=== PATIENT | female | born 1935 | race Caucasian/White ===

== ENCOUNTER 2016-08-23 02:27 | Inpatient (IN) ==
[2016-08-23] MEDS ORDERED: DILTIAZEM 100 MG VIAL.ADD IV ONE ×2 (02:37→02:45)
[2016-08-23] MEDS ORDERED: DILTIAZEM 50 MG/10 ML VIAL IV ONE (02:37)
[2016-08-23] MEDS ORDERED: ASPIRIN 325 MG TABLET PO STA (03:21)
[2016-08-23] MEDS ORDERED: MORPHINE 2 MG/1 ML SYRINGE IV STA (03:21)
[2016-08-23] MEDS ORDERED: ONDANSETRON 4 MG/2 ML VIAL IV STA (03:21)
[2016-08-23] MEDS ORDERED: NITROGLYCERIN 2% OINT 1 INCH/GM PACK TOP STA (03:21)
[2016-08-23] MEDS ORDERED: ALUM/MAG/SIMETH/LIDO VISC 1:1 30 ML BOTTLE PO STA (03:21)
--- NOTE | 2016-08-23 03:24 | EKG Report ---
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
[2016-08-23] MEDS ORDERED: ONDANSETRON 4 MG/2 ML VIAL ONE (03:47)
[2016-08-23] MEDS ORDERED: ASPIRIN 325 MG TABLET ONE (03:47)
[2016-08-23] MEDS ORDERED: ALUM/MAG/SIMETH/LIDO VISC 1:1 30 ML BOTTLE PO ONE (03:47)
[2016-08-23] MEDS ORDERED: NITROGLYCERIN 2% OINT 1 INCH/GM PACK TOP ONE (03:47)
[2016-08-23] MEDS ORDERED: MORPHINE 2 MG/1 ML SYRINGE ONE (03:48)
[2016-08-23 04:14] LABS: Basophils # 0.1 10*3/uL (0.0-0.2); Basophils % 0.7 % (0.0-0.8); Eosinophils # 0.7 10*3/uL (0.0-0.87); Hematocrit 35.3 VOL% (35.7-47.0); Hemoglobin 11.8 GM/DL (12.0-16.0); Immature Granulocytes % 0.3 %; Immature Granulocytes Absolute 0.02 #; Lymphocytes # 2.2 10*3/uL (1.4-4.0); Lymphocytes % 29.8 % (21.3-54.2); Mean Corpuscular HGB Conc 33.4 GM/DL (32-36); Mean Corpuscular Hemoglobin 30 PG (27-34); Mean Corpuscular Volume 90.5 FL (87-102); Mean Platelet Volume 11.1 FL (9.6-12.0); Monocytes # 0.8 10*3/uL (0.11-0.8); Monocytes % 10.7 % (1.7-12.7); Neutrophils # 3.7 10*3/uL (1.4-7.4); Neutrophils % 49.5 % (38.7-73.9); Platelet Count 182 T/CUMM (130-400); Red Cell Distribution Width 14.4 % (9.3-17.3); White Blood Count 7.4 T/CUMM (4-12)
[2016-08-23 04:26] LABS: D-Dimer <= 0.5 MG/L FEU; INR 1.1; PT Patient Result 12.1 SECS
[2016-08-23 04:41] LABS: Alanine Aminotransferase 28 U/L (13-56); Albumin 2.9 G/DL (3.4-5.0); Alkaline Phosphatase 196 U/L (45-117); Aspartate Amino Transferase 18 U/L (0-37); Bilirubin,Total < 0.39 MG/DL (0.2-1.0); Blood Urea Nitrogen 25 MG/DL (7-18); Calcium 7.6 MG/DL (8.5-10.1); Glucose 102 MG/DL (74-106); Magnesium 1.8 MG/DL (1.8-2.4); Osmolality,Calculated 286.1 MOS/KG (273-304); Sodium 142 MMOL/L (136-145); Total Protein 6.1 G/DL (6.4-8.3)
--- NOTE | 2016-08-23 04:41 | Emergency Department Note ---
Zack Preston Emily, am scribing for, and in the presence of, Fili Kelsey MD 03: 28. Laure Preston Charles R, MD, personally performed the services described in this documentation, ascribed by Felicita Dixon in my presence, and it is both accurate and complete 441 . Arrival - Arrival Chief Complaint: Chest Pain Stated Complaint: chest pain ED Nursing Triage Note: C/C pain betweeen shoulder blades and down left arm that has been off/on all day 08/22/16. pt took 1 SL NTG, with relief of pain. Pt took 81mg x2 ASA. Mode of Arrival: Stretcher Limitations: No Limitations Source: Patient Time Seen by Provider: 08/23/16 02:31 - History of Present Illness HPI Narrative: Pt is a 81 y/o female who came to ED with c/o severe pain between shoulder blades in waves since yesterday, but now resolved. Pt has hx of Afib, having one stent and on Plavix, but no OK. Pt was experiencing rapid palpitations, dizziness, weakness, and right sided neck pain but denies abdomen pain. Pt's PCP is Dr. Sahara Blankenship. PMHx of chronic SOB due to COPD of former smoker (quit 7 yrs ago), arthritis in lower back, CA. Pt has pet scan appointment on August 26 to check for any "hot spots." Pt took 1 SL NTG, with relief of pain and 81mg x2 ASA. Onset (ago): day(s) Consistency: intermittent, now resolved Severity: moderate Severity scale (1-10): 6 Quality: aching Allergies/Adverse Reactions: Allergies Allergy/AdvReac Type Severity Reaction Status Date / Time No Known Allergies Allergy Unverified 08/23/16 02:42 Review of System - Review of System 12 point system: reviewed and no additional remarkable complaints except as stated - Review of System Constitutional: Present: weakness. Absent: chills, fever Respiratory: Present: respiratory distress (chronic sob). Absent: cough Cardiovascular: Present: palpitations. Absent: syncope Gastrointestinal: Absent: abdominal pain, nausea, vomiting Genitourinary female: Absent: dysuria Musculoskeletal: Present: neck pain (right sided neck), upper back pain ( between shoulder blades but now resolved). Absent: arm pain, leg pain Skin: Absent: rash Neurological: Present: other (dizziness). Absent: headache Medical,Surgical,& Family Hx - Medical History Cardio: History of: Cardiac Dysrhythmia, CAD, Hypertension, Cardiovascular Problems (Stent) Endocrine: History of: Dyslipidemia Respiratory: History of: COPD Hematology: History of: Anemia Other: History of: Cancer (Lung cell carcinoma) - Surgical History Cardiac Surgeries: Sugical HX of: Cardiac Catheterization Abdominal Surgeries: Surgical HX of: Cholecystectomy - Family History Family History: noncontributory - Social History Smoking Status: Never smoker Frequency of Alcohol Use: None Type of Drug Use: None Marital Status: Single Lives With:: Alone Functional capacity: independent ambulation Exam Vital Signs: Vital Signs Temperature 97.6 F 08/23/16 02:34 Pulse Rate 144 H 08/23/16 02:34 Respiratory Rate 16 08/23/16 02:34 Blood Pressure 115/74 08/23/16 02:34 O2 Sat by Pulse Oximetry 98 08/23/16 02:34 - General General appearance: alert, in no apparent distress - Head Head exam: Present: atraumatic, normocephalic - Eye Eye exam: Present: PERRL, EOMI - ENT ENT exam: Present: mucous membranes moist - Neck Neck exam: Present: full ROM. Absent: tenderness - Chest Chest inspection: Present: symmetric chest wall rise. Absent: tenderness - Respiratory Respiratory exam: Present: rhonchi (bilateral). Absent: normal lung sounds bilaterally - Cardiovascular Cardiovascular exam: Present: bradycardia, normal heart sounds - Abdominal Exam Abdominal exam: Present: soft, normal bowel sounds. Absent: tenderness - Extremities Exam Extremities exam: Present: full ROM, pedal edema (+1). Absent: tenderness - Neurological Exam Neurological exam: Present: alert, oriented X3, CN II-XII intact. Absent: motor sensory deficit - Psychiatric Psychiatric exam: Present: normal affect, normal mood - Skin Skin exam: Present: warm, dry Course - Consultations Consultation #1: Dr. Bobby Michael admit patient for Dr. Ainsley Blankenship Time: 04:48 Results - Labs CBC & BMP: 08/23/16 03:56 08/23/16 03:56 Lab Results: I have reviewed the patients labs Labs: Laboratory Tests 08/23/16 03:56 WBC 7.4 RBC 3.90 Hgb 11.8 L Hct 35.3 L Plt Count 182 Critical Care Time Critical Care Time: Yes Total Critical Care Time: 60 Disposition Clinical Impression: Chest pain, COPD (chronic obstructive pulmonary disease), Atrial fibrillation with RVR Case discussed with: patient Disposition: Still a Patient Condition: Guarded Time of Disposition: 04:50
[2016-08-23] MEDS ORDERED: DILTIAZEM INJ 100 MG in SODIUM CHLORIDE 0.9% 100 ML IV SCH (05:00)
[2016-08-23] MEDS ORDERED: ALBUTEROL/IPRATROPIUM 3 ML NEB RESP TX PRN (05:10)
[2016-08-23] MEDS ORDERED: ONDANSETRON 4 MG/2 ML VIAL IV PRN (05:10)
[2016-08-23] MEDS ORDERED: ACETAMINOPHEN 325 MG TABLET PO PRN (05:10)
[2016-08-23] MEDS: SODIUM CHLORIDE 0.9% 1,000 ML IV SCH ×2 (06:10→16:09)
[2016-08-23] MEDS: MORPHINE 2 MG/1 ML SYRINGE IV PRN (06:11)
--- NOTE | 2016-08-23 06:29 | XRay Report ---
XR chest 2V Indication: Chest pain. Comparison: CT chest 07/31/2016. Technique: PA and lateral chest x-ray was performed. Findings: The heart size appears within normal limits. Pulmonary vasculature demonstrates no specific abnormality. Hilar structures demonstrate fairly symmetric appearance. The lungs appear minimally hyperinflated. Right paratracheal density is demonstrated with surrounding suture line. Disease recurrence in region of prior resection is suggested. Mild emphysematous changes are suggested. Bones and soft tissues demonstrate no evidence of acute pathology. Surgical clips are noted at the GE junction and may reflect prior fundoplication. Additional clips right upper quadrant suggest previous cholecystectomy. Impression: 1. Right paratracheal density is present in the setting of multiple sutures. Disease recurrence and previous surgical bed is not excluded. 2. Emphysematous changes. 08/23/2016 6:23 AM PROCEDURE INTERPRETED AT [facility] DEPARTMENT OF RADIOLOGY Final Report Signed by: Dr. Lanre Banuelos
--- NOTE | 2016-08-23 07:47 | EKG Report ---
Stationary ECG Study 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
[2016-08-23 08:48] LABS: Free T4 (Free Thyroxine) 1.11 NG/DL (0.76-1.46); Thyroid Stimulating Hormone 2.49 uIU/ml (0.358-3.74)
[2016-08-23] MEDS ORDERED: ASPIRIN EC 81 MG TABLET PO SCH (09:00)
[2016-08-23] MEDS ORDERED: DOCUSATE SODIUM 100 MG CAPSULE PO SCH (09:00)
[2016-08-23] MEDS ORDERED: PANTOPRAZOLE 40 MG VIAL IV SCH (09:00)
[2016-08-23] MEDS ORDERED: ENOXAPARIN 40 MG/0.4 ML SYRINGE SUBCUT SCH (09:00)
--- NOTE | 2016-08-23 09:16 | Cardiology Consult Note ---
Assessment and Plan (1) Chest pain Status: Acute Assessment and plan: 81-year-old female, presenting with chest pain. CAD, status post RCA PCI 2007, COPD, lung cancer, paroxysmal A. fib, hypothyroidism, hypertension, hyperlipidemia. So far, no evidence of ACS. 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 -Hypotension. Stop Cardizem drip, she is back in sinus rhythm/ranjit. Continue IVF. -Echo. At the bedside, ejection fraction was preserved, there was no pericardial effusion or right ventricle dilatation. Suspicion for hemodynamically significant PE is low. -CAD, A. fib. CHADSVASC 4. No bleeding issues. Stop aspirin, continue Plavix. Start Eliquis 5 mg twice daily. Continue PPI. -cont statin -Continue metoprolol for rate/rhythm control. If the A. fib recurs, sotalol is an option. I would avoid amiodarone, due to her lung cancer, s/p surgery -Check TFTs -Keep on telemetry, recheck cardiac enzymes, EKG -She will need ischemic evaluation. Given her comorbidities, a pharmacological stress test is an option. If she remains stable, this may be pursued as an outpatient. Current Visit: Yes (2) COPD (chronic obstructive pulmonary disease) Status: Acute Current Visit: Yes (3) Atrial fibrillation with RVR Status: Acute Current Visit: Yes History of Present Illness - Data of Consult Patient: known to practice within the last 3 years Consult date: 08/23/16 Requesting Physician: Ainsley Blankenship - Consult Narrative Reason for consult: CP History of present illness: Ms. He is a 81 year old female, followed by Dr. Burton. History of right lung cancer, status post surgery, with persistent disease in the right paratracheal region, with T3/T4 involvement. Also, history of CAD, status post RCA PCI in 2007. Hypertension hyperlipidemia. History of paroxysmal atrial fibrillation. Yesterday, while at rest, she developed sudden onset, sharp right-sided chest pain and back pain. Which was waxing and waning. Was not affected by activity. She came for evaluation to the emergency room. She also had palpitations. Initially, she was in atrial fibrillation, RVR, was started on Cardizem drip, then she converted back to sinus rhythm and became hypotensive. This was not symptomatic. Troponins were unremarkable, there were no significant repolarization changes on the EKG. The chest pain improved. Prior to the onset of symptoms, she felt fine, her COPD stable. She takes Synthroid for hypothyroidism. EKG showed persistent right paratracheal disease. Recent chest CT confirmed local mass, with spine involvement. CC: Ainsley Blankenship, DO - Home Medications and Allergies Home Medications: Home Medications Medication Instructions Recorded Confirmed Type Albuterol Sulfate [Ventolin HFA] 2 puff INH Q6H PRN 08/23/16 08/23/16 History Aspirin [Ecotrin] 81 mg PO DAILY 08/23/16 08/23/16 History Atorvastatin [Lipitor] 10 mg PO DAILY 08/23/16 08/23/16 History Clopidogrel [Plavix] 75 mg PO DAILY 08/23/16 08/23/16 History Docusate Sodium [Colace] 200 mg PO QPM 08/23/16 08/23/16 History Estradiol Tab [Estrace Tab] 1 mg PO DAILY 08/23/16 08/23/16 History Famotidine 20 mg PO BEDTIME 08/23/16 08/23/16 History Ferrous Sulfate 325 mg PO DAILY 08/23/16 08/23/16 History Folic Acid Tab 1 mg PO DAILY 08/23/16 08/23/16 History HYDROcodone/ACETAMIN 10-325 [[place] 1 tablet PO Q6H PRN 08/23/16 08/23/16 History 10-325] Levothyroxine Tab [Synthroid Tab] 50 mcg PO DAILY@0700 08/23/16 08/23/16 History Metoprolol Succinate Xl [Toprol Xl] 50 mg PO DAILY 08/23/16 08/23/16 History Nitroglycerin [Nitroglycerin SL 0.4 mg SL Q5M PRN 08/23/16 08/23/16 History Tab] Norgestimate-Ethinyl Estradiol 1 each PO DAILY 08/23/16 08/23/16 History [Ortho Tri-Cyclen Lo Tablet] Ondansetron Tab [Zofran Tab] 4 mg PO Q8HR PRN 08/23/16 08/23/16 History Pregabalin [Lyrica] 150 mg PO TID 08/23/16 08/23/16 History Promethazine Tab [Phenergan Tab] 25 mg PO Q6H PRN 08/23/16 08/23/16 History cephALEXin [Keflex] 500 mg PO Q8HR 08/23/16 08/23/16 History clonazePAM [Klonopin] 1 mg PO BEDTIME PRN 08/23/16 08/23/16 History fentaNYL 25 MCG/HR PATCH 1 patch TRANSDERM Q3DAY 08/23/16 08/23/16 History [Duragesic 25 Patch] hydroCHLOROthiazide 25 mg PO DAILY 08/23/16 08/23/16 History [Hydrochlorothiazide] Allergies/Adverse Reactions: Allergies Allergy/AdvReac Type Severity Reaction Status Date / Time No Known Allergies Allergy Unverified 08/23/16 02:42 12 point system: reviewed and no additional remarkable complaints except as stated Medical,Surgical,& Family Hx - Medical History Cardio: History of: Cardiac Dysrhythmia, CAD, Hypertension, Cardiovascular Problems (Stent) HEENT: History of: HEENT Problems (cataracts) Endocrine: History of: Dyslipidemia, Endocrine Problems (hypothyroidism) Respiratory: History of: COPD, Lung Cancer (in remission x 7 years) Gastrointestinal: History of: GERD Musculoskeletal: History of: Back/Neck Problems, Herniated Disk, Osteoporosis Hematology: History of: Anemia Other: History of: Cancer (Lung cell carcinoma) - Surgical History Cardiac Surgeries: Sugical HX of: Cardiac Catheterization Thoracic Surgeries: Surgical HX of;: Lobectomy (RULobectomy) HEENT Surgeries: Surgical HX of: Eye Surgery (cataract surgery) Abdominal Surgeries: Surgical HX of: Appendectomy, Cholecystectomy Reproductive Surgeries: Surgical HX of;: Hysterectomy Orthopedic Surgeries: Surgical HX of;: Spinal Surgery - Family History Family History: Reports;: Family Heart Disease, Family Hypertension - Social History Smoking Status: Never smoker Frequency of Alcohol Use: None Type of Drug Use: None Physical Examination Vital Signs Temp Pulse Resp BP Pulse Ox 97.6 F 138 H 16 115/74 98 08/23/16 02:34 08/23/16 02:34 08/23/16 02:34 08/23/16 02:34 08/23/16 02:34 General: Present: Appears Well, No Apparent Distress HEENT: Present: Normocephaly, Mucus Membranes Moist Neck: Present: No JVD/HJR Cardiac: Present: Regular Rate, Regular Rhythm, S1/S2, Systolic Murmur Lungs: Present: Decreased Breath Sounds. Absent: Rales - Left, Rales - Right Neuro: Present: Grossly Intact Abdomen: Present: Soft, Active Bowel Sounds Skin: Present: Clear Musculoskeletal: Present: No Pain Extremities: Present: No Clubbing, No Cyanosis, No Edema Result/EKG - Labs CBC & BMP: 08/23/16 03:56 08/23/16 03:56 Lab Results: I have reviewed the past 24 hour labs Labs: Laboratory Results - last 24 hr 08/23/16 08/23/16 08/23/16 03:56 03:56 03:56 WBC RBC Hgb Hct MCV MCH MCHC RDW Plt Count MPV Neut % (Auto) Lymph % (Auto) [place] % (Auto) Eos % (Auto) Baso % (Auto) Neut # (Auto) Lymph # (Auto) [place] # (Auto) Eos # (Auto) Baso # (Auto) Immature Gran % Nucleated RBC % Immature Gran # Nucleated RBCs # INR 1.1 PT Patient/Control Mix 12.1 D-Dimer, Quantitative <= 0.5 Sodium 142 Potassium 4.0 Chloride 110 H Carbon Dioxide 23 Anion Gap 13.0 BUN 25 H Creatinine 1.00 GFR Calculation 56 BUN/Creatinine Ratio 25.00 H Glucose 102 Calculated Osmolality 286.1 Calcium 7.6 L Magnesium 1.8 Total Bilirubin < 0.39 AST 18 ALT 28 Alkaline Phosphatase 196 H Troponin I B-Natriuretic Peptide 165 H Total Protein 6.1 L Albumin 2.9 L Globulin 3.2 Albumin/Globulin Ratio 0.9 L Lipase 171.0 Free T4 TSH 3rd Generation 08/23/16 08/23/16 08/23/16 03:56 03:56 07:10 WBC 7.4 RBC 3.90 Hgb 11.8 L Hct 35.3 L MCV 90.5 MCH 30 MCHC 33.4 RDW 14.4 Plt Count 182 MPV 11.1 Neut % (Auto) 49.5 Lymph % (Auto) 29.8 [place] % (Auto) 10.7 Eos % (Auto) 9.0 Baso % (Auto) 0.7 Neut # (Auto) 3.7 Lymph # (Auto) 2.2 [place] # (Auto) 0.8 Eos # (Auto) 0.7 Baso # (Auto) 0.1 Immature Gran % 0.3 Nucleated RBC % 0.0 Immature Gran # 0.02 Nucleated RBCs # 0.00 INR PT Patient/Control Mix D-Dimer, Quantitative Sodium Potassium Chloride Carbon Dioxide Anion Gap BUN Creatinine GFR Calculation BUN/Creatinine Ratio Glucose Calculated Osmolality Calcium Magnesium Total Bilirubin AST ALT Alkaline Phosphatase Troponin I < 0.015 0.016 B-Natriuretic Peptide Total Protein Albumin Globulin Albumin/Globulin Ratio Lipase Free T4 TSH 3rd Generation 08/23/16 07:10 WBC RBC Hgb Hct MCV MCH MCHC RDW Plt Count MPV Neut % (Auto) Lymph % (Auto) [place] % (Auto) Eos % (Auto) Baso % (Auto) Neut # (Auto) Lymph # (Auto) [place] # (Auto) Eos # (Auto) Baso # (Auto) Immature Gran % Nucleated RBC % Immature Gran # Nucleated RBCs # INR PT Patient/Control Mix D-Dimer, Quantitative Sodium Potassium Chloride Carbon Dioxide Anion Gap BUN Creatinine GFR Calculation BUN/Creatinine Ratio Glucose Calculated Osmolality Calcium Magnesium Total Bilirubin AST ALT Alkaline Phosphatase Troponin I B-Natriuretic Peptide Total Protein Albumin Globulin Albumin/Globulin Ratio Lipase Free T4 1.11 TSH 3rd Generation 2.490 - EKG EKG results: interpreted by me
--- NOTE | 2016-08-23 09:25 | EKG Report ---
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
[2016-08-23] MEDS: APIXABAN 5 MG TABLET PO SCH ×2 (09:32→20:12)
[2016-08-23] MEDS: CLOPIDOGREL 75 MG TABLET PO SCH (09:32)
--- NOTE | 2016-08-23 13:51 | Internal Med History&Physical ---
Assessment and Plan (1) Acid indigestion Status: Acute Current Visit: Yes (2) Drug-induced hypotension Status: Acute Current Visit: Yes (3) CAD (coronary artery disease) Status: Chronic Current Visit: Yes Qualifiers: Coronary Disease-Associated Artery/Lesion type: [place] artery [place] vs. transplanted heart: [place] heart Associated angina: with stable angina Qualified Code(s): I25.118 - Atherosclerotic heart disease of [place] coronary artery with other forms of angina pectoris (4) History of lung cancer Problem details: right paratracheal density on chest x-ray; PET scan ordered for Friday Status: Chronic Current Visit: No (5) Atrial fibrillation with RVR Status: Acute Current Visit: Yes (6) COPD (chronic obstructive pulmonary disease) Status: Chronic Current Visit: Yes (7) Chest pain Status: Acute Current Visit: Yes (8) Paroxysmal a-fib Status: Chronic Current Visit: Yes History of Present Illness Chief complaint: acute SOB and upper back pain History of present illness: Ms. He is a 81 year old female with history of paroxysmal atrial fibrillation, allergic rhinitis, hypothyroid, HTN, OA, COPD, lung cancer non small cell in remission several years, CAD/stenting per Dr. Burton, post menopausal symptoms and on estrogen therapy, presented to ER with acute SOB, chest tightness and acid indigestion, and found to be in atrial fibrillation. She was started on Cardizem and given nitro which helped. She converted to sinus rhythm quickly, but became hypotensive drug induced. She was in ICU. She stablized quickly and was transferred to [facility]. ECHO shows LVEF 55% with diastolic dysfunction and mild pulmonary hypertension. Her recently has been placed in group home for advanced dementia. She has been having acid indigestion episodically, similar to before when she had coronary stents placed. She will see Dr. Burton outpatient for further workup. Cardiac enzymes in ER are negative. Also, she quit smoking recently. However, she has a right paratracheal density noted on chest x-ray and PET scan is scheduled for early Friday morning. She is followed by Dr. Raj Blankenship. She is followed by Dr. Gayle for pain management. Home Medications Medication Instructions Recorded Confirmed Type Albuterol Sulfate [Ventolin HFA] 2 puff INH Q6H PRN 08/23/16 08/23/16 History Aspirin [Ecotrin] 81 mg PO DAILY 08/23/16 08/23/16 History Atorvastatin [Lipitor] 10 mg PO DAILY 08/23/16 08/23/16 History Clopidogrel [Plavix] 75 mg PO DAILY 08/23/16 08/23/16 History Docusate Sodium [Colace] 200 mg PO QPM 08/23/16 08/23/16 History Estradiol Tab [Estrace Tab] 1 mg PO DAILY 08/23/16 08/23/16 History Famotidine 20 mg PO BEDTIME 08/23/16 08/23/16 History Ferrous Sulfate 325 mg PO DAILY 08/23/16 08/23/16 History Folic Acid Tab 1 mg PO DAILY 08/23/16 08/23/16 History HYDROcodone/ACETAMIN 10-325 [[place] 1 tablet PO Q6H PRN 08/23/16 08/23/16 History 10-325] Levothyroxine Tab [Synthroid Tab] 50 mcg PO DAILY@0700 08/23/16 08/23/16 History Metoprolol Succinate Xl [Toprol Xl] 50 mg PO DAILY 08/23/16 08/23/16 History Nitroglycerin [Nitroglycerin SL 0.4 mg SL Q5M PRN 08/23/16 08/23/16 History Tab] Norgestimate-Ethinyl Estradiol 1 each PO DAILY 08/23/16 08/23/16 History [Ortho Tri-Cyclen Lo Tablet] Ondansetron Tab [Zofran Tab] 4 mg PO Q8HR PRN 08/23/16 08/23/16 History Pregabalin [Lyrica] 150 mg PO TID 08/23/16 08/23/16 History Promethazine Tab [Phenergan Tab] 25 mg PO Q6H PRN 08/23/16 08/23/16 History cephALEXin [Keflex] 500 mg PO Q8HR 08/23/16 08/23/16 History clonazePAM [Klonopin] 1 mg PO BEDTIME PRN 08/23/16 08/23/16 History fentaNYL 25 MCG/HR PATCH 1 patch TRANSDERM Q3DAY 08/23/16 08/23/16 History [Duragesic 25 Patch] hydroCHLOROthiazide 25 mg PO DAILY 08/23/16 08/23/16 History [Hydrochlorothiazide] Allergies Allergy/AdvReac Type Severity Reaction Status Date / Time No Known Allergies Allergy Unverified 08/23/16 02:42 Medical,Surgical,& Family Hx - Medical History Cardio: History of: Cardiac Dysrhythmia, CAD, Hypertension, Cardiovascular Problems (Stent) Psychological: History of: Depression HEENT: History of: HEENT Problems (cataracts) Endocrine: History of: Dyslipidemia, Thyroid Disorder, Endocrine Problems ( hypothyroidism) Respiratory: History of: COPD, Lung Cancer (in remission x 7 years) Gastrointestinal: History of: GERD Musculoskeletal: History of: Back/Neck Problems, Herniated Disk, Osteoporosis Hematology: History of: Anemia Other: History of: Cancer (Lung cell carcinoma) - Surgical History Cardiac Surgeries: Sugical HX of: Cardiac Catheterization Thoracic Surgeries: Surgical HX of;: Lobectomy (RUL lobectomy) HEENT Surgeries: Surgical HX of: Eye Surgery (cataract surgery) Abdominal Surgeries: Surgical HX of: Appendectomy, Cholecystectomy Reproductive Surgeries: Surgical HX of;: Hysterectomy Orthopedic Surgeries: Surgical HX of;: Spinal Surgery - Family History Family History: Reports;: Family Heart Disease, Family Hypertension - Social History Smoking Status: Never smoker Frequency of Alcohol Use: None Type of Drug Use: None Marital Status: Lives With:: Alone ( in group home) Functional capacity: independent ambulation - Constitutional Constitutional: Present: fatigue - Cardiovascular Cardiovascular: Present: dyspnea, palpitations - Gastrointestinal Gastrointestinal: Present: dyspepsia, heartburn - Musculoskeletal Musculoskeletal: Present: arthralgias, back pain - Psychiatric Psychiatric: Present: anxiety Exam - Constitutional Vitals: Period Temp Pulse Resp BP Sys/[place] Pulse Ox Last 24 Hr 97.4 F-97.6 F 56-144 14-26 81-115/32-74 93-98 General appearance: no acute distress - Head Head exam: Present: normocephalic - Eye Eye exam: Present: EOMI - Respiratory Respiratory exam: Present: clear to auscultation bilaterally - Cardiovascular Cardiovascular exam: Present: regular rate and rhythm - GI/Abdominal GI/Abdominal exam: Present: normal bowel sounds, tenderness (low sternal/upper epigastric), soft - Extremities Exam Extremities exam: Absent: edema - Neurological Exam Neurological exam: Present: alert, oriented X3 - Psychiatric Psychiatric exam: Present: normal mood - Skin Skin exam: Present: warm, dry Results - Labs CBC & BMP: 08/23/16 03:56 08/23/16 03:56
[2016-08-23] MEDS ORDERED: ONDANSETRON 4 MG TABLET PO PRN (13:53)
[2016-08-23] MEDS ORDERED: NITROGLYCERIN SL 0.4 MG TABLET SL PRN (13:53)
[2016-08-23] MEDS ORDERED: clonazePAM 0.5 MG TABLET PO PRN (13:53)
[2016-08-23] MEDS: PREGABALIN 75 MG CAPSULE PO SCH ×2 (14:51→20:12)
[2016-08-23] MEDS ORDERED: PREGABALIN 75 MG CAPSULE PO SCH (15:00)
[2016-08-23] MEDS: ALUMINUM/MAGNES/SIMETH MAX STR 30 ML UDCUP PO PRN (17:36)
--- NOTE | 2016-08-23 19:18 | ECHO Report ---
Marcia He Exam Date: 08/23/2016 08:36 Referring Physician: Technologist: Lavonne Guevara Age: 81 Ht (in): 66 Wt (lb): 148 Gender: F Exam Location: [facility] Echo Indications: chest pain, a fib, Lung CA, R/ O effusion BP: 105 / 60 HR: 69 Rhythm: Sinus Technical Quality: IMPRESSIONS Normal left ventricular size, without hypertrophy, with normal systolic function. Estimated left ventricular ejection fraction 55%. Grade 2 diastolic dysfunction. Mild biatrial enlargement. Mild eccentric mitral regurgitation. Mild aortic valve sclerosis, without stenosis or insufficiency. Mild pulmonary hypertension. No pericardial effusion. MEASUREMENTS (Male / Female) Normal Values 2D ECHO LV Diastolic Diameter PLAX 3.7 cm 4.2 - 5.9 / 3.9 - 5.3 cm LV Systolic Diameter PLAX 2.1 cm LV Fractional Shortening PLAX 44.3 % IVS Diastolic Thickness 1.0 cm 0.6 - 1.0 / 0.6 - 0.9 cm LVPW Diastolic Thickness 0.9 cm 0.6 - 1.0 / 0.6 - 0.9 cm RV Internal Dim ED PLAX 2.4 cm Aortic Root Diameter 2.3 cm LA Systolic Diameter LX 3.5 cm 3.0 - 4.0 / 2.7 - 3.8 cm DOPPLER TR Peak Velocity 277.0 cm/s TR Peak Gradient 30.7 mmHg FINDINGS Left Ventricle Normal left ventricular size, without hypertrophy, with normal systolic function. Estimated left ventricular ejection fraction 55%. Grade 2 diastolic dysfunction. Right Ventricle Normal right ventricular size and systolic function. Right Atrium The right atrium is mildly enlarged. Left Atrium The left atrium is mildly enlarged. Mitral Valve Structurally normal mitral valve, with mild eccentric regurgitation. Aortic Valve Mild aortic valve sclerosis, without stenosis or insufficiency. Tricuspid Valve Morphologically normal tricuspid valve. Mild tricuspid valve regurgitation. Tricuspid regurgitation velocities suggest a PAP of 41 mmHg. Pulmonic Valve Pulmonic valve not well visualized. Pericardium No pericardial effusion. Aorta Normal size aortic root and proximal ascending aorta. Amandeep Jones (Electronically Signed) Final Date: 23 August 2016 19:16
[2016-08-23] MEDS: DOCUSATE SODIUM 100 MG CAPSULE PO SCH (20:11)
[2016-08-24] MEDS: SODIUM CHLORIDE 0.9% 1,000 ML IV SCH ×5 (00:06→22:00)
[2016-08-24] MEDS: MORPHINE 2 MG/1 ML SYRINGE IV PRN (00:06)
[2016-08-24] MEDS: ALUMINUM/MAGNES/SIMETH MAX STR 30 ML UDCUP PO PRN (04:00)
[2016-08-24 04:19] LABS: Basophils % 0.7 % (0.0-0.8); Eosinophils # 0.5 10*3/uL (0.0-0.87); Eosinophils % 10.5 % (0.00-10.9); Hematocrit 29.2 VOL% (35.7-47.0); Hemoglobin 9.4 GM/DL (12.0-16.0); Immature Granulocytes % 0.2 %; Immature Granulocytes Absolute 0.01 #; Lymphocytes # 1.5 10*3/uL (1.4-4.0); Lymphocytes % 34.3 % (21.3-54.2); Mean Corpuscular HGB Conc 32.2 GM/DL (32-36); Mean Corpuscular Hemoglobin 29 PG (27-34); Mean Corpuscular Volume 91.3 FL (87-102); Mean Platelet Volume 11.9 FL (9.6-12.0); Monocytes # 0.5 10*3/uL (0.11-0.8); Monocytes % 11.1 % (1.7-12.7); Neutrophils # 1.9 10*3/uL (1.4-7.4); Neutrophils % 43.2 % (38.7-73.9); Platelet Count 147 T/CUMM (130-400); Red Cell Distribution Width 14.7 % (9.3-17.3); White Blood Count 4.4 T/CUMM (4-12)
[2016-08-24 04:48] LABS: Albumin 2.3 G/DL (3.4-5.0); Bilirubin,Total 0.7 MG/DL (0.2-1.0); Calcium 7.4 MG/DL (8.5-10.1); Magnesium 1.7 MG/DL (1.8-2.4); Osmolality,Calculated 291.4 MOS/KG (273-304); Potassium 4.1 MMOL/L (3.5-5.1); Risk Ratio 2.05; VLDL CHOLESTEROL 20.8 MG/DL
--- NOTE | 2016-08-24 07:50 | XRay Report ---
2 view chest. Indication: Shortness of breath. Comparison: Yesterday's exam. The heart is normal in size. Right paraspinous mass effect remains stable. Prominent hilar regions bilaterally. Previous CT of the chest showed prominent central pulmonary vasculature. No consolidation. No pneumothorax. No pleural effusion. Degenerative changes of the spinal column. Bony lesion seen on CT are not appreciated on plain film. Impression: Stable appearance of the chest. Right paraspinous mass effect. PROCEDURE INTERPRETED AT [facility] DEPARTMENT OF RADIOLOGY Final Report Signed by: Dr. Zahraa Aguilera
--- NOTE | 2016-08-24 08:11 | Family Practice Progress Note ---
Family Practice - PN: Subj Interval history: Patient seen this morning. She is in sinus rhythm at present. In no acute distress. She was currently on Plavix but added Eliquis by lean engineer. She did not take this morning's dose (refused it) but I told her to go intake this morning and discuss with cardiology if they want to continue it. Her hemoglobin hematocrit are 9.4 and 29 slightly lower than yesterday. Her chemistry is stable except for slightly low magnesium of 1.7. No complaints otherwise no chest pain shortness of breath or other constitutional Exam (Progress Note) - Constitutional Vitals: Period Temp Pulse Resp BP Sys/[place]ward Pulse Ox Last 24 Hr 96.4 F-98.3 F 53-69 12-22 86-153/32-65 92-99 Exam: Generally stable is alert and answers all questions appropriately HEENT neck is supple trachea midline Cardiovascular rate is sinus rhythm at present, denies any chest pain Lungs clear bilaterally Abdomen soft nondistended nontender Extremities no clubbing cyanosis or edema Results - Labs CBC & BMP: 08/24/16 03:05 08/24/16 03:05 Assessment and Plan (1) Atrial fibrillation with RVR Status: Acute Assessment and plan: 08/24/2016: At this time she is in sinus rhythm and will let her discuss with cardiology concerning the anticoagulants Current Visit: Yes
[2016-08-24] MEDS ORDERED: MAGNESIUM SULF RIDER 4 GM in PREMIX 1 EACH IV PRN (08:30)
[2016-08-24] MEDS ORDERED: MAGNESIUM SULF RIDER 2 GM in PREMIX 1 EACH IV PRN (08:30)
[2016-08-24] MEDS: LEVOTHYROXINE 50 MCG TABLET PO SCH (09:32)
[2016-08-24] MEDS: FERROUS SULFATE 325 MG TABLET PO SCH (09:32)
[2016-08-24] MEDS: PANTOPRAZOLE 40 MG TABLET PO SCH (09:32)
[2016-08-24] MEDS: CLOPIDOGREL 75 MG TABLET PO SCH (09:32)
[2016-08-24] MEDS: APIXABAN 5 MG TABLET PO SCH ×2 (09:32→20:21)
[2016-08-24] MEDS: ESTRADIOL 1 MG TABLET PO SCH (09:32)
[2016-08-24] MEDS: ATORVASTATIN 10 MG TABLET PO SCH (09:33)
[2016-08-24] MEDS: PREGABALIN 75 MG CAPSULE PO SCH ×3 (09:33→20:21)
--- NOTE | 2016-08-24 10:17 | Cardiology Progress Note ---
Assessment and Plan (1) Chest pain Status: Acute Assessment and plan: 81-year-old female, presenting with chest pain. CAD, status post RCA PCI 2007, COPD, lung cancer, paroxysmal A. fib, hypothyroidism, hypertension, hyperlipidemia. So far, no evidence of ACS. 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 PET scan is planned for restaging on Friday. -Hypotension. resolved after stopping cardizem drip. -CAD, A. fib. CHADSVASC 4. No bleeding issues. Stopped aspirin, continue Plavix. Started Eliquis 5 mg twice daily. Patient agrees to take Eliquis. Continue PPI. -If anemia worsens without reversible etiology, may need to just continue aspirin and Plavix -cont statin -Continue metoprolol for rate/rhythm control. If the A. fib recurs, sotalol is an option. I would avoid amiodarone, due to her lung cancer, s/p surgery -TFTs normal -She will need ischemic evaluation. Given her comorbidities, a pharmacological stress test is an option. If she remains stable, this may be pursued as an outpatient. Also, I would await restaging results, PET scan Current Visit: Yes (2) COPD (chronic obstructive pulmonary disease) Status: Chronic Current Visit: Yes (3) Atrial fibrillation with RVR Status: Acute Current Visit: Yes Cardiology - PN: Subj Interval history: She converted back to sinus rhythm. Still feeling weak, poor appetite. No chest pain. Exam (Progress Note) - Constitutional Vitals: Period Temp Pulse Resp BP Sys/Hayward Pulse Ox Last 24 Hr 96.4 F-98.3 F 53-73 12-19 87-181/40-77 92-99 General appearance: normal weight, no acute distress - Head Head exam: Present: normal inspection - Eye Eye exam: Absent: conjunctival injection, scleral icterus Pupils: Absent: dilated - ENT ENT exam: Present: normal external ear exam - Neck Neck exam: Present: normal inspection - Respiratory Respiratory exam: Present: clear to auscultation bilaterally - Cardiovascular Cardiovascular exam: Present: regular rate and rhythm, systolic murmur. Absent : JVD - GI/Abdominal GI/Abdominal exam: Present: normal bowel sounds. Absent: distended - Extremities Exam Extremities exam: Present: normal inspection, normal capillary refill. Absent: edema - Back Exam Back exam: Present: normal inspection - Neurological Exam Neurological exam: Present: alert, oriented X3 - Psychiatric Psychiatric exam: Present: normal affect, normal mood - Skin Skin exam: Present: normal color, warm. Absent: cyanosis Result/EKG - Labs CBC & BMP: 08/24/16 03:05 08/24/16 03:05 Lab Results: I have reviewed the past 24 hour labs Labs: Laboratory Results - last 24 hr 08/23/16 08/24/16 08/24/16 09:41 03:05 03:05 WBC 4.4 D RBC 3.20 L Hgb 9.4 L D Hct 29.2 L MCV 91.3 MCH 29 MCHC 32.2 RDW 14.7 Plt Count 147 MPV 11.9 Neut % (Auto) 43.2 Lymph % (Auto) 34.3 [place] % (Auto) 11.1 Eos % (Auto) 10.5 Baso % (Auto) 0.7 Neut # (Auto) 1.9 Lymph # (Auto) 1.5 [place] # (Auto) 0.5 Eos # (Auto) 0.5 Baso # (Auto) 0.0 Immature Gran % 0.2 Nucleated RBC % 0.0 Immature Gran # 0.01 Nucleated RBCs # 0.00 Sodium 147 H Potassium 4.1 Chloride 115 H Carbon Dioxide 26 Anion Gap 10.1 BUN 14 D Creatinine 0.70 GFR Calculation 84 BUN/Creatinine Ratio 20.00 Glucose 87 Calculated Osmolality 291.4 Calcium 7.4 L Magnesium 1.7 L Total Bilirubin 0.70 AST 72 H ALT 80 H Alkaline Phosphatase 231 H Troponin I 0.018 B-Natriuretic Peptide Total Protein 5.0 L Albumin 2.3 L Globulin 2.7 Albumin/Globulin Ratio 0.8 L Triglycerides 104 Cholesterol 117 LDL Cholesterol 43.0 VLDL Cholesterol 20.8 HDL Cholesterol 57 Heart Disease Risk Ratio 2.05 08/24/16 03:05 WBC RBC Hgb Hct MCV MCH MCHC RDW Plt Count MPV Neut % (Auto) Lymph % (Auto) [place] % (Auto) Eos % (Auto) Baso % (Auto) Neut # (Auto) Lymph # (Auto) [place] # (Auto) Eos # (Auto) Baso # (Auto) Immature Gran % Nucleated RBC % Immature Gran # Nucleated RBCs # Sodium Potassium Chloride Carbon Dioxide Anion Gap BUN Creatinine GFR Calculation BUN/Creatinine Ratio Glucose Calculated Osmolality Calcium Magnesium Total Bilirubin AST ALT Alkaline Phosphatase Troponin I B-Natriuretic Peptide 230 H Total Protein Albumin Globulin Albumin/Globulin Ratio Triglycerides Cholesterol LDL Cholesterol VLDL Cholesterol HDL Cholesterol Heart Disease Risk Ratio - EKG EKG results: interpreted by me
[2016-08-24] MEDS: METOPROLOL SUCCINATE XL 25 MG TABLET PO SCH ×2 (13:04→14:47)
[2016-08-24] MEDS: DOCUSATE SODIUM 100 MG CAPSULE PO SCH (20:21)
[2016-08-25] MEDS: LEVOTHYROXINE 50 MCG TABLET PO SCH (06:00)
[2016-08-25] MEDS: SODIUM CHLORIDE 0.9% 1,000 ML IV SCH (06:00)
[2016-08-25 06:38] LABS: Basophils % 0.4 % (0.0-0.8); Eosinophils # 0.6 10*3/uL (0.0-0.87); Eosinophils % 12.4 % (0.00-10.9); Hematocrit 28.6 VOL% (35.7-47.0); Hemoglobin 9.3 GM/DL (12.0-16.0); Immature Granulocytes % 0.4 %; Immature Granulocytes Absolute 0.02 #; Lymphocytes # 1.5 10*3/uL (1.4-4.0); Lymphocytes % 33.2 % (21.3-54.2); Mean Corpuscular HGB Conc 32.5 GM/DL (32-36); Mean Corpuscular Hemoglobin 30 PG (27-34); Mean Corpuscular Volume 91.1 FL (87-102); Mean Platelet Volume 11.8 FL (9.6-12.0); Monocytes # 0.6 10*3/uL (0.11-0.8); Neutrophils # 1.9 10*3/uL (1.4-7.4); Neutrophils % 41.6 % (38.7-73.9); Platelet Count 153 T/CUMM (130-400); Red Blood Count 3.14 MC/CUMM (3.8-5.5); Red Cell Distribution Width 14.9 % (9.3-17.3); White Blood Count 4.6 T/CUMM (4-12)
[2016-08-25 07:06] LABS: Calcium 7.6 MG/DL (8.5-10.1); Magnesium 2.1 MG/DL (1.8-2.4); Osmolality,Calculated 289.4 MOS/KG (273-304); Potassium 4.2 MMOL/L (3.5-5.1)
[2016-08-25 07:37] LABS: Eosinophils 7 % (0-10); Hypochromasia Slight; Lymphocytes 26 % (20-55); Platelet Estimate Adequate; Polychromasia Slight; Segmented Neutrophils 62 % (50-85); Total Cells Counted 100
--- NOTE | 2016-08-25 08:08 | Discharge Summary ---
Hospital Course - Hospital Course Hospital Course: 81-year-old female came in through the emergency room in atrial fib. She does have a history of paroxysmal atrial fib. She had acute shortness of breath and chest tightness. She was placed on Cardizem drip and given nitroglycerin at that time. She did convert fairly quickly to sinus rhythm. It was admitted an echocardiogram was done which showed an ejection fraction of 55% but with diastolic dysfunction and mild pulmonary hypertension. In the hospital was seen by cardiology and started on Eliquis in addition to her Plavix. In addition to the above he does have a history of hypothyroidism, hypertension , COPD, and lung disease/cancer nonsmall cell carcinoma in remission. Also has had coronary artery disease and stenting in the past. At this time she is stable and feels quite well. She is going to be scheduled for an outpatient PET scan to be done tomorrow. She will also follow-up with cardiology for ischemic studies in the very near future. We will get her appointments with her exceptional children teacher as well as oncologist. Diagnosis - Discharge Diagnosis (1) Atrial fibrillation with RVR Status: Acute Discharge Plan - Discharge Data Disposition: Disch To Home/Self Care Condition at Discharge: Stable Discharge Diet: heart healthy Activity: increase activity as tolerated Hygiene: no restrictions Weight Bearing at Discharge: weight bear as tolerated Driving: not until seen by doctor Contact your physician if you experience:: Shortness of breath, pain uncontrolled by pain medications - Discharge Medications New Apixaban [Eliquis] 5 mg PO BID #60 tablet Clopidogrel [Plavix] 75 mg PO DAILY #0 tablet HYDROcodone/ACETAMIN 5-325 [[place] 5-325] 1 tablet PO Q6H PRN tablet PRN Reason: Pain Moderate (4-7) Metoprolol Succinate Xl [Toprol Xl] 25 mg PO DAILY #30 tablet Continue Ondansetron Tab [Zofran Tab] 4 mg PO Q8HR PRN PRN Reason: Nausea/Vomiting Nitroglycerin [Nitroglycerin SL Tab] 0.4 mg SL Q5M PRN PRN Reason: Chest Pain HYDROcodone/ACETAMIN 10-325 [[place] 10-325] 1 tablet PO Q6H PRN PRN Reason: Pain Estradiol Tab [Estrace Tab] 1 mg PO DAILY Albuterol Sulfate [Ventolin HFA] 2 puff INH Q6H PRN PRN Reason: Shortness Of Breath/Wheezing Levothyroxine Tab [Synthroid Tab] 50 mcg PO DAILY@0700 Folic Acid Tab 1 mg PO DAILY Clopidogrel [Plavix] 75 mg PO DAILY Atorvastatin [Lipitor] 10 mg PO DAILY clonazePAM [Klonopin] 1 mg PO BEDTIME PRN PRN Reason: Anxiety Norgestimate-Ethinyl Estradiol [Ortho Tri-Cyclen Lo Tablet] 1 each PO DAILY Ferrous Sulfate 325 mg PO DAILY Famotidine 20 mg PO BEDTIME Docusate Sodium [Colace] 200 mg PO QPM Promethazine Tab [Phenergan Tab] 25 mg PO Q6H PRN PRN Reason: Nausea/Vomiting fentaNYL 25 MCG/HR PATCH [Duragesic 25 Patch] 1 patch TRANSDERM Q3DAY Pregabalin [Lyrica] 150 mg PO TID Discontinued Metoprolol Succinate Xl [Toprol Xl] 50 mg PO DAILY hydroCHLOROthiazide [Hydrochlorothiazide] 25 mg PO DAILY Aspirin [Ecotrin] 81 mg PO DAILY cephALEXin [Keflex] 500 mg PO Q8HR - Follow Up or Referral Follow Up: Ainsley Blankenship DO [Primary Care Provider] - 2 Weeks Essie Burton DO [Physician] - 2 Weeks - Forms/Instructions Exam - Constitutional Vitals: Period Temp Pulse Resp BP Sys/Hayward Pulse Ox Last 24 Hr 97.1 F-99 F 67-78 18-18 95-138/46-63 92-97 Discharge Results Procedures and tests throughout hospitalization: Pending Orders 08/26/16 04:00 BMP w/ Mg [Basic Metabolic Panel w/Mg] IN AM CBC [Comp Blood Count Auto Diff] IN AM Labs on day of discharge: Labs from last 24 hours 08/25/16 08/25/16 05:38 05:38 WBC 4.6 RBC 3.14 L Hgb 9.3 L Hct 28.6 L MCV 91.1 MCH 30 MCHC 32.5 RDW 14.9 Plt Count 153 MPV 11.8 Neut % (Auto) 41.6 Lymph % (Auto) 33.2 [place] % (Auto) 12.0 Eos % (Auto) 12.4 H Baso % (Auto) 0.4 Neut # (Auto) 1.9 Lymph # (Auto) 1.5 [place] # (Auto) 0.6 Eos # (Auto) 0.6 Baso # (Auto) 0.0 Total Counted 100 Immature Gran % 0.4 Nucleated RBC % 0.0 Immature Gran # 0.02 Segmented Neutrophils 62 Lymphocytes 26 Monocytes 5 Eosinophils 7 Nucleated RBCs # 0.00 Platelet Estimate Adequate Polychromasia Slight Hypochromasia Slight Sodium 147 H Potassium 4.2 Chloride 116 H Carbon Dioxide 24 Anion Gap 11.2 BUN 9 Creatinine 0.70 GFR Calculation 84 BUN/Creatinine Ratio 12.00 Glucose 85 Calculated Osmolality 289.4 Calcium 7.6 L Magnesium 2.1 DS: Provider Date of admission: 08/23/16 04:50 Primary care physician: Ainsley Blankenship DO Attending physician on admission: Ainsley Blankenship DO Consults: 08/23/16 05:10 Consult to Case Mgmt/Social Srvs [CONS] Routine Reason for Case Mgmt/Social Srvs: Discharge Planning Consult to Physician [CONS] Routine Comment: A. fib with RVR, chest pain Consulting Provider: Jerson Shepard Consulting Provider Notified: Yes When should Consulting Provider be notified: In am Consult to Specialist Group: Cardiology Person Notified: opal Date Notified: 08/23/16 Time Notified: 07:30 08/23/16 13:51 Consult to Dietitian [CONS] Routine Reason for Dietitian: Diet Recommendations Consult Comment: protein requirements Discharging clinician: Lon Mg DO
[2016-08-25] MEDS ORDERED: fentaNYL 25 MCG/HR PATCH TRANSDERM SCH (09:00)
[2016-08-25] MEDS: CLOPIDOGREL 75 MG TABLET PO SCH (09:12)
[2016-08-25] MEDS: FERROUS SULFATE 325 MG TABLET PO SCH (09:12)
[2016-08-25] MEDS: ATORVASTATIN 10 MG TABLET PO SCH (09:12)
[2016-08-25] MEDS: PANTOPRAZOLE 40 MG TABLET PO SCH (09:12)
[2016-08-25] MEDS: PREGABALIN 75 MG CAPSULE PO SCH (09:12)
[2016-08-25] MEDS: APIXABAN 5 MG TABLET PO SCH (09:12)
[2016-08-25] MEDS: ESTRADIOL 1 MG TABLET PO SCH (09:12)
[2016-08-25] MEDS: METOPROLOL SUCCINATE XL 25 MG TABLET PO SCH ×2 (09:13→09:29)
--- NOTE | 2016-08-25 09:13 | Cardiology Progress Note ---
Assessment and Plan (1) Chest pain Status: Acute Assessment and plan: 81-year-old female, presenting with chest pain. CAD, status post RCA PCI 2007, COPD, lung cancer, paroxysmal A. fib, hypothyroidism, hypertension, hyperlipidemia. So far, no evidence of ACS. 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 PET scan is planned for restaging on Friday. -Hypotension. resolved after stopping cardizem drip. -CAD, A. fib. CHADSVASC 4. No bleeding issues. Stopped aspirin, continue Plavix. Started Eliquis 5 mg twice daily. Anemia, with hematocrit now around 28. No sign of active bleeding. Will need close follow-up. Continue PPI. If anemia worsens without reversible etiology, may need to just continue aspirin and Plavix -cont statin -Continue metoprolol for rate/rhythm control. If the A. fib recurs, sotalol is an option. I would avoid amiodarone, due to her lung cancer, s/p surgery -TFTs normal -She will need ischemic evaluation. Given her comorbidities, a pharmacological stress test is an option. Follow up with Dr. Burton. Current Visit: Yes (2) COPD (chronic obstructive pulmonary disease) Status: Chronic Current Visit: Yes (3) Atrial fibrillation with RVR Status: Acute Current Visit: Yes Cardiology - PN: Subj Interval history: She still had some intermittent right sided chest pain. Blood pressure, heart rate remained well controlled, SR. Hematocrit around 28. Exam (Progress Note) - Constitutional Vitals: Period Temp Pulse Resp BP Sys/Hayward Pulse Ox Last 24 Hr 97.1 F-99 F 67-78 18-18 95-138/46-63 92-97 General appearance: normal weight, no acute distress - Head Head exam: Present: normal inspection, normocephalic - Eye Eye exam: Absent: conjunctival injection, scleral icterus Pupils: Absent: dilated - ENT ENT exam: Present: normal external ear exam - Neck Neck exam: Present: normal inspection - Respiratory Respiratory exam: Present: clear to auscultation bilaterally. Absent: decreased breath sounds, wheezes - Cardiovascular Cardiovascular exam: Present: irregular rhythm, systolic murmur. Absent: JVD - GI/Abdominal GI/Abdominal exam: Present: normal bowel sounds. Absent: distended - Extremities Exam Extremities exam: Present: normal inspection, normal capillary refill. Absent: edema - Back Exam Back exam: Present: normal inspection - Neurological Exam Neurological exam: Present: alert, oriented X3 - Psychiatric Psychiatric exam: Present: normal affect, normal mood - Skin Skin exam: Present: normal color, warm. Absent: cyanosis, diaphoretic Result/EKG - Labs CBC & BMP: 08/25/16 05:38 08/25/16 05:38 Lab Results: I have reviewed the past 24 hour labs Labs: Laboratory Results - last 24 hr 08/25/16 08/25/16 05:38 05:38 WBC 4.6 RBC 3.14 L Hgb 9.3 L Hct 28.6 L MCV 91.1 MCH 30 MCHC 32.5 RDW 14.9 Plt Count 153 MPV 11.8 Neut % (Auto) 41.6 Lymph % (Auto) 33.2 [place] % (Auto) 12.0 Eos % (Auto) 12.4 H Baso % (Auto) 0.4 Neut # (Auto) 1.9 Lymph # (Auto) 1.5 [place] # (Auto) 0.6 Eos # (Auto) 0.6 Baso # (Auto) 0.0 Total Counted 100 Immature Gran % 0.4 Nucleated RBC % 0.0 Immature Gran # 0.02 Segmented Neutrophils 62 Lymphocytes 26 Monocytes 5 Eosinophils 7 Nucleated RBCs # 0.00 Platelet Estimate Adequate Polychromasia Slight Hypochromasia Slight Sodium 147 H Potassium 4.2 Chloride 116 H Carbon Dioxide 24 Anion Gap 11.2 BUN 9 Creatinine 0.70 GFR Calculation 84 BUN/Creatinine Ratio 12.00 Glucose 85 Calculated Osmolality 289.4 Calcium 7.6 L Magnesium 2.1 - EKG EKG results: interpreted by me Specialty Discharge - Follow Up or Referrals Follow up with: Ainsley Blankenship DO [Primary Care Provider] - 2 Weeks Essie Burton DO [Physician] - 2 Weeks
[2016-08-25 11:32] VITALS: BP 113/56
--- NOTE | 2016-08-25 14:13 | EKG Report ---
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
--- NOTE | 2016-09-03 08:10 | Physician Query Form ---
CLICK EDIT DOCUMENT TO SELECT QUERY ANSWER --> OK --> SIGN Di Banuelos RN, CCDS Certified Clinical Machine Baster W) [phone] (f) [phone] [email or web address] PROVIDERS: Make your selection(s) from the choices in EACH section by typing an "x" and enter comments in the comment section. Please use your independent medical judgment in providing your response. This request does not imply that any particular answer is desired or expected. 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 MTDD
== END 2016-08-25 11:10 | disposition home or self-care (01) | DRG 309 ==
LOC: EDBD → EDUNIT# → N.ED 02:27 → N.EDINP 04:50 → N.TELES 05:03 → N.ICU 05:07 → N.4E 15:17
PROVIDERS: ADMIT Internal Medicine; ATTEND Internal Medicine

== ENCOUNTER 2017-05-21 22:08 | Inpatient (IN) ==
[2017-05-21] MEDS ORDERED: ONDANSETRON 4 MG/2 ML VIAL ONE (22:18)
[2017-05-21] MEDS ORDERED: ONDANSETRON 4 MG/2 ML VIAL IV STA (22:18)
[2017-05-21] MEDS ORDERED: FUROSEMIDE 40 MG/4 ML VIAL IV STA (22:18)
[2017-05-21] MEDS ORDERED: DILTIAZEM 50 MG/10 ML VIAL IV STA (22:18)
[2017-05-21] MEDS ORDERED: FUROSEMIDE 40 MG/4 ML VIAL ONE (22:18)
[2017-05-21] MEDS ORDERED: DILTIAZEM 50 MG/10 ML VIAL IV ONE (22:19)
[2017-05-21 22:26] LABS: Basophils % 0.4 % (0.0-0.8); Eosinophils # 0.5 10*3/uL (0.0-0.87); Eosinophils % 5.1 % (0.00-10.9); Hematocrit 38.7 VOL% (35.7-47.0); Hemoglobin 12.6 GM/DL (12.0-16.0); Immature Granulocytes % 0.6 %; Immature Granulocytes Absolute 0.05 #; Lymphocytes # 2.2 10*3/uL (1.4-4.0); Mean Corpuscular HGB Conc 32.6 GM/DL (32-36); Mean Corpuscular Hemoglobin 29 PG (27-34); Mean Platelet Volume 10.7 FL (9.6-12.0); Monocytes # 0.8 10*3/uL (0.11-0.8); Monocytes % 9.4 % (1.7-12.7); Neutrophils # 5.4 10*3/uL (1.4-7.4); Neutrophils % 60.5 % (38.7-73.9); Platelet Count 237 T/CUMM (130-400); Red Cell Distribution Width 14.9 % (9.3-17.3); White Blood Count 8.9 T/CUMM (4-12)
[2017-05-21] MEDS ORDERED: NITROGLYCERIN 2% OINT 1 INCH/GM PACK TOP STA (22:27)
[2017-05-21] MEDS ORDERED: NITROGLYCERIN 2% OINT 1 INCH/GM PACK TOP ONE (22:30)
[2017-05-21 22:35] LABS: PT Patient Result 10.4 SECS; Partial Thromboplastin Time 26.7 SECS (0-40)
[2017-05-21] MEDS ORDERED: DILTIAZEM 100 MG VIAL.ADD IV ONE (22:38)
[2017-05-21] MEDS ORDERED: SODIUM CHLORIDE 0.9% 100 ML IV ONE (22:41)
[2017-05-21 22:46] LABS: Troponin I Only < 0.015 NG/ML (0.00-0.045)
[2017-05-21 22:59] LABS: Alanine Aminotransferase 24 U/L (13-56); Albumin 3.3 G/DL (3.4-5.0); Alkaline Phosphatase 179 U/L (45-117); Aspartate Amino Transferase 16 U/L (0-37); Bilirubin,Total < 0.39 MG/DL (0.2-1.0); Blood Urea Nitrogen 28 MG/DL (7-18); Glucose 167 MG/DL (74-106); Osmolality,Calculated 288.4 MOS/KG (273-304); Potassium 3.6 MMOL/L (3.5-5.1); Sodium 140 MMOL/L (136-145); Total Protein 6.9 G/DL (6.4-8.3); Troponin I Only < 0.015 NG/ML (0.00-0.045)
[2017-05-21] MEDS ORDERED: DILTIAZEM INJ 100 MG in SODIUM CHLORIDE 0.9% 100 ML IV SCH (23:00)
[2017-05-21 23:49] LABS: Barbiturates Screen,Urine Negative (Negative); Benzodiazepines Screen,Urine Negative (Negative); Cannabinoid Screen,Urine Negative (Negative); Opiate Screen,Urine Positive (Negative); Phencyclidine Screen,Urine Negative (Negative)
[2017-05-21 23:52] LABS: Apearance,Urine Slightly Hazy (Clear); Bacteria,Urine Many /HPF (Few); Bilirubin,Urine Negative (Negative); Blood, Urine Negative (Negative); Glucose,Urine (UA) Negative (Negative); Hyaline Casts,Urine 20 /LPF (0-3); Ketones,Urine Negative (Negative); Mucus,Urine Occasional /LPF (Occasional); Nitrite,Urine Negative (Negative); Protein,Urine Negative; RBC,Urine 9 /HPF (0-4); Squamous Epithelial Cell,Urine Occasional /HPF (0-10); Urine Color Yellow (Yellow); Urine Specific Gravity 1.005 (1.001-1.035); Urine Urobilinogen < 2.0 EU/DL (0.2-1.0); WBC,Urine 58 /HPF (0-6)
[2017-05-22 00:29] LABS: Free T4 (Free Thyroxine) 1.23 NG/DL (0.76-1.46); Thyroid Stimulating Hormone 2.7 uIU/ml (0.358-3.74)
[2017-05-22] MEDS ORDERED: ONDANSETRON 4 MG/2 ML VIAL IV PRN (01:03)
[2017-05-22] MEDS ORDERED: ALBUTEROL/IPRATROPIUM 3 ML NEB RESP TX PRN (01:03)
[2017-05-22] MEDS ORDERED: clonazePAM 0.5 MG TABLET PO SCH ×4 (02:30→21:00)
[2017-05-22] MEDS: FAMOTIDINE 20 MG TABLET PO SCH ×2 (02:37→21:20)
[2017-05-22] MEDS: ESTRADIOL 1 MG TABLET PO SCH ×2 (02:37→09:18)
[2017-05-22] MEDS: APIXABAN 5 MG TABLET PO SCH ×3 (02:38→21:20)
[2017-05-22] MEDS: LEVOTHYROXINE 50 MCG TABLET PO SCH (05:52)
[2017-05-22 06:59] LABS: Troponin I Only < 0.015 NG/ML (0.00-0.045)
[2017-05-22] MEDS ORDERED: ESTRADIOL 1 MG TABLET PO SCH (09:00)
[2017-05-22] MEDS ORDERED: CLOPIDOGREL 75 MG TABLET PO SCH (09:00)
[2017-05-22] MEDS: PANTOPRAZOLE 40 MG TABLET PO SCH (09:18)
[2017-05-22] MEDS: PREGABALIN 75 MG CAPSULE PO SCH ×3 (09:18→21:21)
[2017-05-22] MEDS ORDERED: cefTRIAXone 1,000 MG in SYRINGE 1 EACH IV SCH (14:30)
[2017-05-22] MEDS: SODIUM CHLORIDE 0.9% 1,000 ML IV SCH (15:00)
[2017-05-22] MEDS ORDERED: POTASSIUM CHLORIDE 20 MEQ TABLET PO ONE (17:11)
[2017-05-22] MEDS ORDERED: METOPROLOL SUCCINATE XL 25 MG TABLET PO ONE (17:13)
[2017-05-22] MEDS: ALBUTEROL/IPRATROPIUM 3 ML NEB RESP TX SCH (19:06)
[2017-05-22] MEDS ORDERED: ATORVASTATIN 10 MG TABLET PO SCH (21:00)
[2017-05-23] MEDS: ALBUTEROL/IPRATROPIUM 3 ML NEB RESP TX SCH ×3 (00:02→14:00)
[2017-05-23 05:03] LABS: Basophils % 0.5 % (0.0-0.8); Eosinophils # 0.3 10*3/uL (0.0-0.87); Hematocrit 31.7 VOL% (35.7-47.0); Hemoglobin 10.1 GM/DL (12.0-16.0); Immature Granulocytes % 0.4 %; Immature Granulocytes Absolute 0.02 #; Lymphocytes # 1.2 10*3/uL (1.4-4.0); Lymphocytes % 22.1 % (21.3-54.2); Mean Corpuscular HGB Conc 31.9 GM/DL (32-36); Mean Corpuscular Hemoglobin 29 PG (27-34); Mean Corpuscular Volume 90.6 FL (87-102); Mean Platelet Volume 10.9 FL (9.6-12.0); Monocytes # 0.7 10*3/uL (0.11-0.8); Monocytes % 12.5 % (1.7-12.7); Neutrophils # 3.3 10*3/uL (1.4-7.4); Neutrophils % 59.5 % (38.7-73.9); Platelet Count 196 T/CUMM (130-400); Red Cell Distribution Width 14.8 % (9.3-17.3); White Blood Count 5.6 T/CUMM (4-12)
[2017-05-23 05:26] LABS: Osmolality,Calculated 287.1 MOS/KG (273-304); Potassium 3.7 MMOL/L (3.5-5.1)
[2017-05-23] MEDS ORDERED: MAGNESIUM SULF RIDER 2 GM in PREMIX 1 EACH IV PRN (05:40)
[2017-05-23] MEDS ORDERED: MAGNESIUM SULF RIDER 4 GM in PREMIX 1 EACH IV PRN (05:40)
[2017-05-23] MEDS: SODIUM CHLORIDE 0.9% 1,000 ML IV SCH ×2 (06:16→09:38)
[2017-05-23] MEDS: LEVOTHYROXINE 50 MCG TABLET PO SCH (06:31)
[2017-05-23] MEDS ORDERED: LEVOTHYROXINE 50 MCG TABLET PO SCH (07:00)
[2017-05-23] MEDS ORDERED: POTASSIUM CHLORIDE 20 MEQ TABLET PO SCH (09:00)
[2017-05-23] MEDS ORDERED: METOPROLOL SUCCINATE XL 25 MG TABLET PO SCH ×2 (09:00→21:00)
[2017-05-23] MEDS: PANTOPRAZOLE 40 MG TABLET PO SCH (09:36)
[2017-05-23] MEDS: ESTRADIOL 1 MG TABLET PO SCH (09:36)
[2017-05-23] MEDS: PREGABALIN 75 MG CAPSULE PO SCH (09:36)
[2017-05-23] MEDS: APIXABAN 5 MG TABLET PO SCH (09:37)
[2017-05-23 12:11] VITALS: BP 109/53
== END 2017-05-23 16:25 | disposition home health service (06) | DRG 309 ==
LOC: EDUNIT# → N.ED 22:08 → N.EDINP 23:30 → N.TELES 05-22 00:53
PROVIDERS: ADMIT Internal Medicine; ATTEND Internal Medicine

== ENCOUNTER 2018-02-19 09:45 | Inpatient (IN) ==
[2018-02-19] MEDS ORDERED: ALBUTEROL/IPRATROPIUM 3 ML NEB RESP TX STA (10:26)
[2018-02-19] MEDS ORDERED: LEVOFLOXACIN INJ 500 MG in PREMIX 1 EACH IV STA (10:26)
[2018-02-19] MEDS ORDERED: methylPREDNISolone SOD SUC 125 MG/2 ML VIAL IV STA (10:26)
[2018-02-19 10:36] LABS: Basophils % 0.4 % (0.0-0.8); Eosinophils # 0.5 10*3/uL (0.0-0.87); Eosinophils % 5.8 % (0.00-10.9); Hemoglobin 10.3 GM/DL (12.0-16.0); Immature Granulocytes % 0.5 %; Immature Granulocytes Absolute 0.04 #; Lymphocytes # 0.8 10*3/uL (1.4-4.0); Lymphocytes % 8.9 % (21.3-54.2); Mean Corpuscular HGB Conc 31.2 GM/DL (32-36); Mean Corpuscular Hemoglobin 28 PG (27-34); Mean Corpuscular Volume 88.7 FL (87-102); Mean Platelet Volume 10.9 FL (9.6-12.0); Monocytes # 0.6 10*3/uL (0.11-0.8); Monocytes % 7.6 % (1.7-12.7); Neutrophils # 6.5 10*3/uL (1.4-7.4); Neutrophils % 76.8 % (38.7-73.9); Platelet Count 247 T/CUMM (130-400); Red Blood Count 3.72 MC/CUMM (3.8-5.5); Red Cell Distribution Width 14.6 % (9.3-17.3); White Blood Count 8.5 T/CUMM (4-12)
[2018-02-19 10:47] LABS: Bilirubin,Total 0.4 MG/DL (0.2-1.0); Calcium 8.3 MG/DL (8.5-10.1); Potassium 4.3 MMOL/L (3.5-5.1); Total Protein 6.8 G/DL (6.4-8.3)
[2018-02-19] MEDS ORDERED: ONDANSETRON 4 MG/2 ML VIAL ONE (10:49)
[2018-02-19] MEDS ORDERED: ONDANSETRON 4 MG/2 ML VIAL IV STA (11:03)
[2018-02-19] MEDS ORDERED: ONDANSETRON 4 MG/2 ML VIAL IV PRN (11:27)
[2018-02-19] MEDS ORDERED: guaiFENesin/CODEINE 5 ML LIQUID ONE (11:40)
[2018-02-19] MEDS ORDERED: guaiFENesin/CODEINE 5 ML LIQUID PO ONE (11:41)
[2018-02-19] MEDS: ALBUTEROL/IPRATROPIUM 3 ML NEB RESP TX SCH ×2 (14:07→19:43)
[2018-02-19] MEDS: ACETAMINOPHEN 325 MG TABLET PO PRN (14:14)
[2018-02-19] MEDS ORDERED: MAGNESIUM SULF RIDER 2 GM in PREMIX 1 EACH IV ONE (18:43)
[2018-02-19] MEDS ORDERED: PHENOL 1.4% THROAT SPRAY 177 ML BOTTLE PO PRN (18:46)
[2018-02-19] MEDS ORDERED: NITROGLYCERIN SL 0.4 MG TABLET SL PRN (18:46)
[2018-02-19] MEDS ORDERED: PROMETHAZINE 25 MG TABLET PO PRN (18:46)
[2018-02-19] MEDS ORDERED: AZITHROMYCIN INJ 250 MG in SODIUM CHLORIDE 0.9% 250 ML IV SCH (19:00)
[2018-02-19] MEDS: APIXABAN 2.5 MG TABLET PO SCH (21:51)
[2018-02-19] MEDS: PREGABALIN 75 MG CAPSULE PO SCH (21:52)
[2018-02-19] MEDS: METOPROLOL SUCCINATE XL 25 MG TABLET PO SCH (21:52)
[2018-02-19] MEDS: MAGNESIUM OXIDE 400 MG TABLET PO SCH (21:52)
[2018-02-19] MEDS: DOCUSATE SODIUM 100 MG CAPSULE PO SCH (21:52)
[2018-02-19] MEDS: LIDOCAINE 5% PATCH TRANSDERM SCH (21:53)
[2018-02-19] MEDS: cefTRIAXone 1,000 MG in SYRINGE 1 EACH IV SCH (21:55)
[2018-02-20] MEDS: ALBUTEROL/IPRATROPIUM 3 ML NEB RESP TX SCH ×4 (01:40→20:45)
[2018-02-20 05:02] LABS: Hematocrit 27.8 VOL% (35.7-47.0); Hemoglobin 8.6 GM/DL (12.0-16.0); Immature Granulocytes % 1.2 %; Immature Granulocytes Absolute 0.06 #; Lymphocytes # 0.4 10*3/uL (1.4-4.0); Lymphocytes % 8.5 % (21.3-54.2); Mean Corpuscular HGB Conc 30.9 GM/DL (32-36); Mean Corpuscular Hemoglobin 27 PG (27-34); Mean Corpuscular Volume 88.5 FL (87-102); Mean Platelet Volume 11.2 FL (9.6-12.0); Monocytes # 0.3 10*3/uL (0.11-0.8); Monocytes % 6.3 % (1.7-12.7); Neutrophils # 4.3 10*3/uL (1.4-7.4); Platelet Count 226 T/CUMM (130-400); Red Blood Count 3.14 MC/CUMM (3.8-5.5); Red Cell Distribution Width 14.6 % (9.3-17.3); White Blood Count 5.1 T/CUMM (4-12)
[2018-02-20 05:21] LABS: Calcium 8.2 MG/DL (8.5-10.1); Osmolality,Calculated 281.4 MOS/KG (273-304); Potassium 3.9 MMOL/L (3.5-5.1)
[2018-02-20] MEDS: LEVOTHYROXINE 50 MCG TABLET PO SCH (07:52)
[2018-02-20] MEDS: ACETAMINOPHEN 325 MG TABLET PO PRN ×2 (07:52→16:49)
[2018-02-20] MEDS: APIXABAN 2.5 MG TABLET PO SCH ×2 (09:03→20:50)
[2018-02-20] MEDS: DOCUSATE SODIUM 100 MG CAPSULE PO SCH ×2 (09:03→20:50)
[2018-02-20] MEDS: METOPROLOL SUCCINATE XL 25 MG TABLET PO SCH ×2 (09:03→20:51)
[2018-02-20] MEDS: traZODone 50 MG TABLET PO SCH (09:03)
[2018-02-20] MEDS: AMIODARONE 200 MG TABLET PO SCH (09:03)
[2018-02-20] MEDS: PREGABALIN 75 MG CAPSULE PO SCH ×3 (09:03→20:51)
[2018-02-20] MEDS: FOLIC ACID 1 MG TABLET PO SCH (09:03)
[2018-02-20] MEDS: PANTOPRAZOLE 40 MG TABLET PO SCH (09:03)
[2018-02-20] MEDS: MAGNESIUM OXIDE 400 MG TABLET PO SCH ×2 (09:03→20:51)
[2018-02-20] MEDS: POTASSIUM CHLORIDE 20 MEQ TABLET PO SCH (09:03)
[2018-02-20] MEDS: FLUTICASONE 50 MCG NASAL SPRAY 16 GM BOTTLE BOTH NARES SCH (09:04)
[2018-02-20] MEDS: LIDOCAINE 5% PATCH TRANSDERM SCH ×2 (09:12→20:50)
[2018-02-20] MEDS: cefTRIAXone 1,000 MG in SYRINGE 1 EACH IV SCH (22:32)
[2018-02-21] MEDS: BENZONATATE 100 MG CAPSULE PO PRN ×3 (01:31→23:56)
[2018-02-21] MEDS: ALBUTEROL/IPRATROPIUM 3 ML NEB RESP TX SCH ×4 (01:32→19:31)
[2018-02-21 05:24] LABS: Basophils % 0.2 % (0.0-0.8); Eosinophils # 0.2 10*3/uL (0.0-0.87); Eosinophils % 3.2 % (0.00-10.9); Hematocrit 28.1 VOL% (35.7-47.0); Hemoglobin 8.4 GM/DL (12.0-16.0); Immature Granulocytes % 0.8 %; Immature Granulocytes Absolute 0.04 #; Lymphocytes # 0.8 10*3/uL (1.4-4.0); Lymphocytes % 14.5 % (21.3-54.2); Mean Corpuscular HGB Conc 29.9 GM/DL (32-36); Mean Corpuscular Hemoglobin 27 PG (27-34); Mean Corpuscular Volume 90.9 FL (87-102); Mean Platelet Volume 10.8 FL (9.6-12.0); Monocytes # 0.5 10*3/uL (0.11-0.8); Monocytes % 10.3 % (1.7-12.7); Neutrophils # 3.7 10*3/uL (1.4-7.4); Platelet Count 215 T/CUMM (130-400); Red Blood Count 3.09 MC/CUMM (3.8-5.5); Red Cell Distribution Width 14.9 % (9.3-17.3); White Blood Count 5.2 T/CUMM (4-12)
[2018-02-21 05:52] LABS: Calcium 8.4 MG/DL (8.5-10.1); Osmolality,Calculated 282.3 MOS/KG (273-304)
[2018-02-21] MEDS: LEVOTHYROXINE 50 MCG TABLET PO SCH (06:11)
[2018-02-21] MEDS: DOCUSATE SODIUM 100 MG CAPSULE PO SCH ×2 (10:46→21:20)
[2018-02-21] MEDS: traZODone 50 MG TABLET PO SCH (10:47)
[2018-02-21] MEDS: ACETAMINOPHEN 325 MG TABLET PO PRN (10:47)
[2018-02-21] MEDS: FERROUS SULFATE 325 MG TABLET PO SCH ×2 (10:47→21:20)
[2018-02-21] MEDS: FOLIC ACID 1 MG TABLET PO SCH (10:47)
[2018-02-21] MEDS: AMIODARONE 200 MG TABLET PO SCH (10:47)
[2018-02-21] MEDS: PANTOPRAZOLE 40 MG TABLET PO SCH (10:47)
[2018-02-21] MEDS: METOPROLOL SUCCINATE XL 25 MG TABLET PO SCH ×2 (10:47→21:20)
[2018-02-21] MEDS: POTASSIUM CHLORIDE 20 MEQ TABLET PO SCH (10:47)
[2018-02-21] MEDS: APIXABAN 2.5 MG TABLET PO SCH ×2 (10:48→21:20)
[2018-02-21] MEDS: MAGNESIUM OXIDE 400 MG TABLET PO SCH ×2 (10:48→21:20)
[2018-02-21] MEDS: LIDOCAINE 5% PATCH TRANSDERM SCH ×2 (10:48→21:21)
[2018-02-21] MEDS: PREGABALIN 75 MG CAPSULE PO SCH ×3 (10:48→21:20)
[2018-02-21] MEDS: FLUTICASONE 50 MCG NASAL SPRAY 16 GM BOTTLE BOTH NARES SCH (10:48)
[2018-02-21] MEDS: cefTRIAXone 1,000 MG in SYRINGE 1 EACH IV SCH (20:26)
[2018-02-22] MEDS: ALBUTEROL/IPRATROPIUM 3 ML NEB RESP TX SCH ×4 (00:09→19:18)
[2018-02-22 06:14] LABS: Basophils % 0.4 % (0.0-0.8); Eosinophils # 0.4 10*3/uL (0.0-0.87); Eosinophils % 9.3 % (0.00-10.9); Hematocrit 27.9 VOL% (35.7-47.0); Hemoglobin 8.5 GM/DL (12.0-16.0); Immature Granulocytes % 0.8 %; Immature Granulocytes Absolute 0.04 #; Lymphocytes # 0.8 10*3/uL (1.4-4.0); Lymphocytes % 17.1 % (21.3-54.2); Mean Corpuscular HGB Conc 30.5 GM/DL (32-36); Mean Corpuscular Hemoglobin 27 PG (27-34); Mean Corpuscular Volume 89.7 FL (87-102); Mean Platelet Volume 11.4 FL (9.6-12.0); Monocytes # 0.6 10*3/uL (0.11-0.8); Monocytes % 12.7 % (1.7-12.7); NRBC # 0.07 10*3/uL; Neutrophils # 2.8 10*3/uL (1.4-7.4); Neutrophils % 59.7 % (38.7-73.9); Platelet Count 231 T/CUMM (130-400); Red Blood Count 3.11 MC/CUMM (3.8-5.5); Red Cell Distribution Width 14.8 % (9.3-17.3); White Blood Count 4.7 T/CUMM (4-12)
[2018-02-22] MEDS: APIXABAN 2.5 MG TABLET PO SCH ×2 (08:59→21:43)
[2018-02-22] MEDS: POTASSIUM CHLORIDE 20 MEQ TABLET PO SCH (08:59)
[2018-02-22] MEDS: MAGNESIUM OXIDE 400 MG TABLET PO SCH ×2 (08:59→21:43)
[2018-02-22] MEDS: AMIODARONE 200 MG TABLET PO SCH (08:59)
[2018-02-22] MEDS: FERROUS SULFATE 325 MG TABLET PO SCH ×2 (08:59→21:43)
[2018-02-22] MEDS: METOPROLOL SUCCINATE XL 25 MG TABLET PO SCH ×2 (08:59→21:43)
[2018-02-22] MEDS: DOCUSATE SODIUM 100 MG CAPSULE PO SCH ×2 (08:59→21:43)
[2018-02-22] MEDS: PANTOPRAZOLE 40 MG TABLET PO SCH (08:59)
[2018-02-22] MEDS: LEVOTHYROXINE 50 MCG TABLET PO SCH (08:59)
[2018-02-22] MEDS: FOLIC ACID 1 MG TABLET PO SCH (08:59)
[2018-02-22] MEDS: PREGABALIN 75 MG CAPSULE PO SCH ×3 (08:59→22:59)
[2018-02-22] MEDS: FLUTICASONE 50 MCG NASAL SPRAY 16 GM BOTTLE BOTH NARES SCH (09:00)
[2018-02-22] MEDS: traZODone 50 MG TABLET PO SCH (09:07)
[2018-02-22] MEDS: LIDOCAINE 5% PATCH TRANSDERM SCH ×2 (13:37→21:42)
[2018-02-22] MEDS: cefTRIAXone 1,000 MG in SYRINGE 1 EACH IV SCH (22:24)
[2018-02-23] MEDS: ALBUTEROL/IPRATROPIUM 3 ML NEB RESP TX SCH ×4 (00:14→19:25)
[2018-02-23] MEDS: BENZONATATE 100 MG CAPSULE PO PRN (00:35)
[2018-02-23] MEDS: traZODone 50 MG TABLET PO SCH ×2 (00:35→11:46)
[2018-02-23 05:38] LABS: Basophils % 0.4 % (0.0-0.8); Eosinophils # 0.3 10*3/uL (0.0-0.87); Eosinophils % 6.5 % (0.00-10.9); Hematocrit 26.8 VOL% (35.7-47.0); Hemoglobin 8.1 GM/DL (12.0-16.0); Immature Granulocytes Absolute 0.05 #; Mean Corpuscular HGB Conc 30.2 GM/DL (32-36); Mean Corpuscular Hemoglobin 28 PG (27-34); Mean Corpuscular Volume 90.8 FL (87-102); Mean Platelet Volume 10.9 FL (9.6-12.0); Monocytes # 0.6 10*3/uL (0.11-0.8); Monocytes % 11.8 % (1.7-12.7); Neutrophils # 3.1 10*3/uL (1.4-7.4); Neutrophils % 61.3 % (38.7-73.9); Platelet Count 242 T/CUMM (130-400); Red Blood Count 2.95 MC/CUMM (3.8-5.5); Red Cell Distribution Width 14.7 % (9.3-17.3); White Blood Count 5.1 T/CUMM (4-12)
[2018-02-23] MEDS ORDERED: SODIUM CHLORIDE 0.9% 1,000 ML IV PRN (07:33)
[2018-02-23] MEDS: LIDOCAINE 5% PATCH TRANSDERM SCH ×2 (11:45→20:09)
[2018-02-23] MEDS: PANTOPRAZOLE 40 MG TABLET PO SCH (11:46)
[2018-02-23] MEDS: FERROUS SULFATE 325 MG TABLET PO SCH ×2 (11:46→20:10)
[2018-02-23] MEDS: APIXABAN 2.5 MG TABLET PO SCH ×2 (11:46→20:10)
[2018-02-23] MEDS: AMIODARONE 200 MG TABLET PO SCH (11:46)
[2018-02-23] MEDS: METOPROLOL SUCCINATE XL 25 MG TABLET PO SCH ×2 (11:46→20:10)
[2018-02-23] MEDS: POTASSIUM CHLORIDE 20 MEQ TABLET PO SCH (11:46)
[2018-02-23] MEDS: PREGABALIN 75 MG CAPSULE PO SCH ×2 (11:47→18:53)
[2018-02-23] MEDS: MAGNESIUM OXIDE 400 MG TABLET PO SCH ×2 (11:47→20:10)
[2018-02-23] MEDS: LEVOTHYROXINE 50 MCG TABLET PO SCH (11:47)
[2018-02-23] MEDS: DOCUSATE SODIUM 100 MG CAPSULE PO SCH ×2 (11:47→20:10)
[2018-02-23] MEDS: FOLIC ACID 1 MG TABLET PO SCH (11:47)
[2018-02-23] MEDS: FLUTICASONE 50 MCG NASAL SPRAY 16 GM BOTTLE BOTH NARES SCH (11:47)
[2018-02-23] MEDS: cefTRIAXone 1,000 MG in SYRINGE 1 EACH IV SCH (20:14)
[2018-02-24] MEDS: PREGABALIN 75 MG CAPSULE PO SCH ×4 (00:10→21:14)
[2018-02-24] MEDS: BENZONATATE 100 MG CAPSULE PO PRN (00:15)
[2018-02-24] MEDS: ALBUTEROL/IPRATROPIUM 3 ML NEB RESP TX SCH ×4 (01:03→20:02)
[2018-02-24 04:38] LABS: Basophils % 0.3 % (0.0-0.8); Eosinophils # 0.4 10*3/uL (0.0-0.87); Eosinophils % 6.2 % (0.00-10.9); Hematocrit 27.6 VOL% (35.7-47.0); Hemoglobin 8.3 GM/DL (12.0-16.0); Immature Granulocytes % 0.5 %; Immature Granulocytes Absolute 0.03 #; Lymphocytes # 1.1 10*3/uL (1.4-4.0); Lymphocytes % 18.9 % (21.3-54.2); Mean Corpuscular HGB Conc 30.1 GM/DL (32-36); Mean Corpuscular Hemoglobin 27 PG (27-34); Mean Corpuscular Volume 89.6 FL (87-102); Mean Platelet Volume 10.7 FL (9.6-12.0); Monocytes # 0.6 10*3/uL (0.11-0.8); Monocytes % 10.7 % (1.7-12.7); Neutrophils # 3.7 10*3/uL (1.4-7.4); Neutrophils % 63.4 % (38.7-73.9); Platelet Count 260 T/CUMM (130-400); Red Blood Count 3.08 MC/CUMM (3.8-5.5); Red Cell Distribution Width 14.8 % (9.3-17.3); White Blood Count 5.8 T/CUMM (4-12)
[2018-02-24 05:02] LABS: Albumin 2.2 G/DL (3.4-5.0); Bilirubin,Total 0.4 MG/DL (0.2-1.0); Calcium 8.2 MG/DL (8.5-10.1); Osmolality,Calculated 279.4 MOS/KG (273-304); Potassium 4.1 MMOL/L (3.5-5.1); Total Protein 5.9 G/DL (6.4-8.3)
[2018-02-24] MEDS: LEVOTHYROXINE 50 MCG TABLET PO SCH (06:02)
[2018-02-24] MEDS: POTASSIUM CHLORIDE 20 MEQ TABLET PO SCH (10:17)
[2018-02-24] MEDS: FOLIC ACID 1 MG TABLET PO SCH (10:18)
[2018-02-24] MEDS: AMIODARONE 200 MG TABLET PO SCH (10:18)
[2018-02-24] MEDS: FERROUS SULFATE 325 MG TABLET PO SCH ×2 (10:18→21:14)
[2018-02-24] MEDS: MAGNESIUM OXIDE 400 MG TABLET PO SCH ×2 (10:18→21:14)
[2018-02-24] MEDS: PANTOPRAZOLE 40 MG TABLET PO SCH (10:18)
[2018-02-24] MEDS: APIXABAN 2.5 MG TABLET PO SCH ×2 (10:18→21:14)
[2018-02-24] MEDS: DOCUSATE SODIUM 100 MG CAPSULE PO SCH ×2 (10:18→21:14)
[2018-02-24] MEDS: METOPROLOL SUCCINATE XL 25 MG TABLET PO SCH ×2 (10:18→21:14)
[2018-02-24] MEDS: LIDOCAINE 5% PATCH TRANSDERM SCH ×2 (10:21→21:15)
[2018-02-24] MEDS: FLUTICASONE 50 MCG NASAL SPRAY 16 GM BOTTLE BOTH NARES SCH (10:21)
[2018-02-24] MEDS: traZODone 50 MG TABLET PO SCH ×2 (10:45→21:14)
[2018-02-24] MEDS: cefTRIAXone 1,000 MG in SYRINGE 1 EACH IV SCH (22:44)
[2018-02-25] MEDS: ACETAMINOPHEN 325 MG TABLET PO PRN (00:36)
[2018-02-25] MEDS: ALBUTEROL/IPRATROPIUM 3 ML NEB RESP TX SCH ×4 (01:08→20:12)
[2018-02-25 05:08] LABS: Basophils % 0.6 % (0.0-0.8); Eosinophils # 0.3 10*3/uL (0.0-0.87); Eosinophils % 6.3 % (0.00-10.9); Hematocrit 34.5 VOL% (35.7-47.0); Immature Granulocytes Absolute 0.05 #; Lymphocytes # 0.8 10*3/uL (1.4-4.0); Mean Corpuscular HGB Conc 31.6 GM/DL (32-36); Mean Corpuscular Hemoglobin 29 PG (27-34); Mean Corpuscular Volume 90.3 FL (87-102); Monocytes # 0.5 10*3/uL (0.11-0.8); Monocytes % 9.9 % (1.7-12.7); Neutrophils # 3.5 10*3/uL (1.4-7.4); Neutrophils % 66.2 % (38.7-73.9); Platelet Count 249 T/CUMM (130-400); Red Cell Distribution Width 14.9 % (9.3-17.3); White Blood Count 5.3 T/CUMM (4-12)
[2018-02-25 05:09] LABS: Red Blood Count 3.82 MC/CUMM (3.8-5.5)
[2018-02-25 05:10] LABS: Hemoglobin 10.9 GM/DL (12.0-16.0)
[2018-02-25 05:17] LABS: Albumin 2.3 G/DL (3.4-5.0); Bilirubin,Total 0.5 MG/DL (0.2-1.0); Calcium 8.2 MG/DL (8.5-10.1); Osmolality,Calculated 281.3 MOS/KG (273-304); Potassium 4.3 MMOL/L (3.5-5.1); Total Protein 6.2 G/DL (6.4-8.3)
[2018-02-25] MEDS: LEVOTHYROXINE 50 MCG TABLET PO SCH (06:01)
[2018-02-25] MEDS: AMIODARONE 200 MG TABLET PO SCH (09:34)
[2018-02-25] MEDS: PREGABALIN 75 MG CAPSULE PO SCH ×3 (09:34→21:11)
[2018-02-25] MEDS: FOLIC ACID 1 MG TABLET PO SCH (09:34)
[2018-02-25] MEDS: FERROUS SULFATE 325 MG TABLET PO SCH ×2 (09:34→21:11)
[2018-02-25] MEDS: DOCUSATE SODIUM 100 MG CAPSULE PO SCH ×2 (09:34→21:11)
[2018-02-25] MEDS: PANTOPRAZOLE 40 MG TABLET PO SCH (09:34)
[2018-02-25] MEDS: POTASSIUM CHLORIDE 20 MEQ TABLET PO SCH (09:34)
[2018-02-25] MEDS: MAGNESIUM OXIDE 400 MG TABLET PO SCH ×2 (09:34→21:11)
[2018-02-25] MEDS: APIXABAN 2.5 MG TABLET PO SCH ×2 (09:34→21:11)
[2018-02-25] MEDS: METOPROLOL SUCCINATE XL 25 MG TABLET PO SCH ×2 (09:34→21:11)
[2018-02-25] MEDS: BENZONATATE 100 MG CAPSULE PO PRN (09:34)
[2018-02-25] MEDS: FLUTICASONE 50 MCG NASAL SPRAY 16 GM BOTTLE BOTH NARES SCH (09:38)
[2018-02-25] MEDS: LIDOCAINE 5% PATCH TRANSDERM SCH ×2 (09:46→21:11)
[2018-02-25] MEDS: traZODone 50 MG TABLET PO SCH ×2 (11:02→22:30)
[2018-02-25] MEDS: CEFDINIR 300 MG CAPSULE PO SCH (21:12)
[2018-02-26] MEDS: ALBUTEROL/IPRATROPIUM 3 ML NEB RESP TX SCH ×4 (00:54→20:14)
[2018-02-26 06:10] LABS: Basophils % 0.4 % (0.0-0.8); Eosinophils # 0.3 10*3/uL (0.0-0.87); Eosinophils % 6.5 % (0.00-10.9); Hematocrit 36.3 VOL% (35.7-47.0); Hemoglobin 11.3 GM/DL (12.0-16.0); Immature Granulocytes % 0.4 %; Immature Granulocytes Absolute 0.02 #; Lymphocytes # 0.8 10*3/uL (1.4-4.0); Lymphocytes % 16.2 % (21.3-54.2); Mean Corpuscular HGB Conc 31.1 GM/DL (32-36); Mean Corpuscular Hemoglobin 28 PG (27-34); Mean Platelet Volume 10.6 FL (9.6-12.0); Monocytes # 0.7 10*3/uL (0.11-0.8); Monocytes % 12.8 % (1.7-12.7); Neutrophils # 3.2 10*3/uL (1.4-7.4); Neutrophils % 63.7 % (38.7-73.9); Platelet Count 256 T/CUMM (130-400); Red Blood Count 3.99 MC/CUMM (3.8-5.5); Red Cell Distribution Width 14.8 % (9.3-17.3); White Blood Count 5.1 T/CUMM (4-12)
[2018-02-26] MEDS: LEVOTHYROXINE 50 MCG TABLET PO SCH (06:24)
[2018-02-26 06:39] LABS: Calcium 8.6 MG/DL (8.5-10.1); Osmolality,Calculated 279.3 MOS/KG (273-304); Potassium 4.6 MMOL/L (3.5-5.1)
[2018-02-26] MEDS: MAGNESIUM OXIDE 400 MG TABLET PO SCH ×2 (08:56→20:11)
[2018-02-26] MEDS: FOLIC ACID 1 MG TABLET PO SCH (08:56)
[2018-02-26] MEDS: DOCUSATE SODIUM 100 MG CAPSULE PO SCH ×2 (08:56→20:11)
[2018-02-26] MEDS: PANTOPRAZOLE 40 MG TABLET PO SCH (08:56)
[2018-02-26] MEDS: PREGABALIN 75 MG CAPSULE PO SCH ×3 (08:56→20:12)
[2018-02-26] MEDS: METOPROLOL SUCCINATE XL 25 MG TABLET PO SCH ×2 (08:56→20:11)
[2018-02-26] MEDS: FERROUS SULFATE 325 MG TABLET PO SCH ×2 (08:56→20:11)
[2018-02-26] MEDS: AMIODARONE 200 MG TABLET PO SCH (08:56)
[2018-02-26] MEDS: APIXABAN 2.5 MG TABLET PO SCH ×2 (08:56→20:12)
[2018-02-26] MEDS: POTASSIUM CHLORIDE 20 MEQ TABLET PO SCH (08:57)
[2018-02-26] MEDS: FLUTICASONE 50 MCG NASAL SPRAY 16 GM BOTTLE BOTH NARES SCH (08:59)
[2018-02-26] MEDS: CEFDINIR 300 MG CAPSULE PO SCH ×2 (09:03→20:15)
[2018-02-26] MEDS: LIDOCAINE 5% PATCH TRANSDERM SCH ×2 (09:03→20:12)
[2018-02-26] MEDS: ACETAMINOPHEN 325 MG TABLET PO PRN (19:22)
[2018-02-26] MEDS: traZODone 50 MG TABLET PO SCH (20:12)
[2018-02-27] MEDS: ALBUTEROL/IPRATROPIUM 3 ML NEB RESP TX SCH ×2 (01:10→06:58)
[2018-02-27 03:14] LABS: Basophils % 0.2 % (0.0-0.8); Eosinophils # 0.3 10*3/uL (0.0-0.87); Eosinophils % 6.5 % (0.00-10.9); Hematocrit 35.3 VOL% (35.7-47.0); Immature Granulocytes % 0.6 %; Immature Granulocytes Absolute 0.03 #; Lymphocytes # 0.8 10*3/uL (1.4-4.0); Lymphocytes % 16.5 % (21.3-54.2); Mean Corpuscular HGB Conc 31.2 GM/DL (32-36); Mean Corpuscular Hemoglobin 28 PG (27-34); Mean Platelet Volume 10.5 FL (9.6-12.0); Monocytes # 0.7 10*3/uL (0.11-0.8); Monocytes % 12.7 % (1.7-12.7); Neutrophils # 3.2 10*3/uL (1.4-7.4); Neutrophils % 63.5 % (38.7-73.9); Platelet Count 219 T/CUMM (130-400); Red Blood Count 3.88 MC/CUMM (3.8-5.5); Red Cell Distribution Width 14.9 % (9.3-17.3); White Blood Count 5.1 T/CUMM (4-12)
[2018-02-27 04:45] VITALS: BP 121/56
[2018-02-27] MEDS: LEVOTHYROXINE 50 MCG TABLET PO SCH (06:14)
[2018-02-27] MEDS: DOCUSATE SODIUM 100 MG CAPSULE PO SCH (09:25)
[2018-02-27] MEDS: PANTOPRAZOLE 40 MG TABLET PO SCH (09:25)
[2018-02-27] MEDS: MAGNESIUM OXIDE 400 MG TABLET PO SCH (09:25)
[2018-02-27] MEDS: AMIODARONE 200 MG TABLET PO SCH (09:25)
[2018-02-27] MEDS: POTASSIUM CHLORIDE 20 MEQ TABLET PO SCH (09:25)
[2018-02-27] MEDS: CEFDINIR 300 MG CAPSULE PO SCH (09:25)
[2018-02-27] MEDS: FOLIC ACID 1 MG TABLET PO SCH (09:25)
[2018-02-27] MEDS: PREGABALIN 75 MG CAPSULE PO SCH (09:25)
[2018-02-27] MEDS: METOPROLOL SUCCINATE XL 25 MG TABLET PO SCH (09:26)
[2018-02-27] MEDS: FERROUS SULFATE 325 MG TABLET PO SCH (09:26)
[2018-02-27] MEDS: APIXABAN 2.5 MG TABLET PO SCH (09:27)
[2018-02-27] MEDS: LIDOCAINE 5% PATCH TRANSDERM SCH (09:27)
[2018-02-27] MEDS: FLUTICASONE 50 MCG NASAL SPRAY 16 GM BOTTLE BOTH NARES SCH (09:27)
== END 2018-02-27 10:35 | disposition home health service (06) | DRG 190 ==
LOC: N.ED 09:45 → N.EDINP 11:26 → N.TELES 16:28 → N.4E 02-20 15:21
PROVIDERS: ADMIT Internal Medicine; ATTEND Internal Medicine

== ENCOUNTER 2019-10-29 21:17 | Observation (INO) ==
[2019-10-29] MEDS ORDERED: MORPHINE 4 MG/1 ML VIAL IV STA (21:58)
[2019-10-29] MEDS ORDERED: ASPIRIN 325 MG TABLET PO STA (21:58)
[2019-10-29] MEDS ORDERED: ONDANSETRON 4 MG/2 ML VIAL IV STA (21:58)
[2019-10-29 22:09] LABS: Basophils % 0.6 % (0.0-0.8); Eosinophils # 0.2 10*3/uL (0.0-0.87); Eosinophils % 4.8 % (0.00-10.9); Hematocrit 33.7 VOL% (35.7-47.0); Hemoglobin 10.8 GM/DL (12.0-16.0); Immature Granulocytes % 0.4 %; Immature Granulocytes Absolute 0.02 #; Lymphocytes # 0.9 10*3/uL (1.4-4.0); Lymphocytes % 19.7 % (21.3-54.2); Mean Corpuscular Volume 87.1 FL (87-102); Mean Platelet Volume 10.2 FL (9.6-12.0); Monocytes % 11.4 % (1.7-12.7); Neutrophils % 63.1 % (38.7-73.9); Platelet Count 221 T/CUMM (130-400); Red Blood Count 3.87 MC/CUMM (3.8-5.5); Red Cell Distribution Width 13.3 % (9.3-17.3); White Blood Count 4.6 T/CUMM (4-12)
[2019-10-29 22:21] LABS: INR 1.1; PT Patient Result 11.3 SECS (9.8-11.9)
[2019-10-29 22:30] LABS: Alanine Aminotransferase 13 U/L (13-56); Alkaline Phosphatase 271 U/L (45-117); Aspartate Amino Transferase 15 U/L (0-37); Bilirubin,Total < 0.39 MG/DL (0.2-1.0); Blood Urea Nitrogen 11 MG/DL (7-18); Calcium 8.6 MG/DL (8.5-10.1); Estimated Glom Filtration Rate 41 ML/MIN; Glucose 110 MG/DL (74-106); Osmolality,Calculated 272.8 MOS/KG (273-304); Total Protein 7.3 G/DL (6.4-8.3)
[2019-10-29] MEDS ORDERED: ACETAMINOPHEN 325 MG TABLET PO PRN (23:17)
[2019-10-30] MEDS: ONDANSETRON 4 MG/2 ML VIAL IV PRN ×2 (02:31→11:43)
[2019-10-30 05:21] LABS: Basophils % 0.5 % (0.0-0.8); Eosinophils # 0.2 10*3/uL (0.0-0.87); Eosinophils % 4.2 % (0.00-10.9); Hematocrit 32.6 VOL% (35.7-47.0); Hemoglobin 10.4 GM/DL (12.0-16.0); Immature Granulocytes % 0.5 %; Immature Granulocytes Absolute 0.02 #; Lymphocytes % 26.2 % (21.3-54.2); Mean Corpuscular HGB Conc 31.9 GM/DL (32-36); Mean Corpuscular Volume 87.4 FL (87-102); Mean Platelet Volume 10.2 FL (9.6-12.0); Monocytes % 13.9 % (1.7-12.7); Neutrophils % 54.7 % (38.7-73.9); Platelet Count 210 T/CUMM (130-400); Red Blood Count 3.73 MC/CUMM (3.8-5.5); Red Cell Distribution Width 13.3 % (9.3-17.3); White Blood Count 3.8 T/CUMM (4-12)
[2019-10-30 05:53] LABS: Albumin 2.7 G/DL (3.4-5.0); Bilirubin,Total 1.7 MG/DL (0.2-1.0); Calcium 8.6 MG/DL (8.5-10.1); Osmolality,Calculated 276.5 MOS/KG (273-304); Total Protein 6.7 G/DL (6.4-8.3)
[2019-10-30 07:42] LABS: Apearance,Urine Slightly Hazy (Clear); Bacteria,Urine Few /HPF (Few); Bilirubin,Urine Negative (Negative); Blood, Urine Negative (Negative); Glucose,Urine (UA) Negative (Negative); Hyaline Casts,Urine 16 /LPF (0-3); Ketones,Urine Negative (Negative); Mucus,Urine Occasional /LPF (Occasional); Nitrite,Urine Negative (Negative); Protein,Urine Negative; RBC,Urine 2 /HPF (0-4); Squamous Epithelial Cell,Urine Occasional /HPF (0-10); Urine Color Yellow (Yellow); Urine Specific Gravity 1.011 (1.001-1.035); Urine Urobilinogen < 2.0 EU/DL (0.2-1.0); WBC,Urine 26 /HPF (0-6)
[2019-10-30] MEDS ORDERED: PANTOPRAZOLE 40 MG TABLET PO SCH (09:00)
[2019-10-30] MEDS ORDERED: DOCUSATE SODIUM 100 MG CAPSULE PO SCH (09:00)
[2019-10-30] MEDS ORDERED: NITROGLYCERIN SL 0.4 MG TABLET SL PRN (11:26)
[2019-10-30] MEDS ORDERED: FUROSEMIDE 40 MG TABLET PO PRN (11:26)
[2019-10-30] MEDS ORDERED: ALUM/MAG/SIMETH/LIDO VISC 1:1 30 ML BOTTLE PO ONE (11:49)
[2019-10-30 12:13] LABS: Troponin I < 0.015 NG/ML (0.00-0.045)
[2019-10-30] MEDS ORDERED: ALBUTEROL 2.5 MG/3 ML NEB RESP TX PRN (13:00)
[2019-10-30] MEDS: PREGABALIN 75 MG CAPSULE PO SCH ×2 (14:18→21:12)
[2019-10-30] MEDS ORDERED: FAMOTIDINE 20 MG TABLET PO SCH (21:00)
[2019-10-30] MEDS ORDERED: traZODone 50 MG TABLET PO SCH (21:00)
[2019-10-30] MEDS: APIXABAN 2.5 MG TABLET PO SCH (21:11)
[2019-10-30] MEDS: PANTOPRAZOLE 40 MG TABLET PO SCH (21:11)
[2019-10-30] MEDS: MAGNESIUM OXIDE 400 MG TABLET PO SCH (21:11)
[2019-10-30] MEDS: METOPROLOL SUCCINATE XL 25 MG TABLET PO SCH (21:12)
[2019-10-31] MEDS ORDERED: LEVOTHYROXINE 50 MCG TABLET PO SCH (07:00)
[2019-10-31] MEDS ORDERED: ESTRADIOL 1 MG TABLET PO SCH (09:00)
[2019-10-31] MEDS ORDERED: UMECLIDINIUM VILANTEROL INH SCH (09:00)
[2019-10-31] MEDS ORDERED: MULTIVITAMIN (CENTRUM) TABLET PO SCH (09:00)
[2019-10-31] MEDS: MAGNESIUM OXIDE 400 MG TABLET PO SCH (09:54)
[2019-10-31] MEDS: METOPROLOL SUCCINATE XL 25 MG TABLET PO SCH (09:54)
[2019-10-31] MEDS: PREGABALIN 75 MG CAPSULE PO SCH (09:55)
[2019-10-31] MEDS: APIXABAN 2.5 MG TABLET PO SCH (09:55)
[2019-10-31] MEDS: PANTOPRAZOLE 40 MG TABLET PO SCH (09:55)
[2019-10-31 12:19] VITALS: BP 126/48
== END 2019-10-31 15:16 | disposition home or self-care (01) ==
LOC: EDUNIT# → EDBD → N.ED 21:17 → N.EDINP 21:17 → N.TELEN 10-30 01:17
PROVIDERS: ADMIT Internal Medicine; ATTEND Internal Medicine